=== PATIENT | male | born 1960 | race African-American/Black ===

== ENCOUNTER 2017-02-28 08:00 | Inpatient (IN) | payer OTHER, BC ==
[2017-02-23 08:25] VITALS: BMI 37.5
[2017-03-05] MEDS ORDERED: ePHEDrine SULFATE 50 MG/1 ML AMPULE ONE (07:23)
[2017-03-05] MEDS ORDERED: SUCCINYLCHOLINE CHLORIDE 200 MG/10 ML VIAL ONE (07:24)
[2017-03-05] MEDS ORDERED: PROPOFOL 20 ML ONE ×13 (07:25→11:55)
[2017-03-05] MEDS ORDERED: fentaNYL CITRATE 250 MCG/5 ML VIAL ONE ×2 (07:33→08:42)
[2017-03-05] MEDS ORDERED: MIDAZOLAM HCL 2 MG/2 ML SINGLE DOSE VIAL ONE ×5 (07:33→10:28)
[2017-03-05] MEDS ORDERED: ONDANSETRON 4 MG/2 ML VIAL IVPUSH PRN ×3 (07:42→13:06)
[2017-03-05] MEDS ORDERED: oxyCODONE HCL 5 MG TABLET PO PRN (07:42)
[2017-03-05] MEDS ORDERED: LACTATED RINGERS SOLUTION 1,000 ML IV SCH ×2 (07:45→13:15)
[2017-03-05] MEDS ORDERED: VANCOMYCIN 1,000 MG VIAL (RESTRICTED TO ID ONLY) ONE ×3 (07:46→18:05)
[2017-03-05] MEDS ORDERED: HEPARIN NA (PORCINE) 5,000 UNITS/ML 1ML VIAL ONE ×2 (07:46→09:20)
[2017-03-05] MEDS ORDERED: THROMBIN (BOVINE) 5,000 UNIT VIAL TP ONE ×2 (07:47→12:18)
[2017-03-05] MEDS ORDERED: GLYCOPYRROLATE 0.2 MG/1 ML VIAL ONE ×2 (08:47→12:03)
[2017-03-05] MEDS ORDERED: DEXAMETHASONE SOD PHOSPHATE 4 MG/1 ML VIAL ONE (09:11)
[2017-03-05] MEDS ORDERED: VANCOMYCIN 1 GRAM (PRE-DOCKED) 1,000 MG/250 ML BAG IVPB ONE (09:15)
[2017-03-05] MEDS ORDERED: CLINDAMYCIN PHOSPHATE 600 MG/4 ML VIAL ONE ×2 (09:18→18:03)
[2017-03-05] MEDS ORDERED: ROCURONIUM BROMIDE 50 MG/5 ML VIAL ONE (09:22)
[2017-03-05] MEDS ORDERED: CLINDAMYCIN 600 MG PREMIX BAG IVPB ONE (09:30)
[2017-03-05] MEDS ORDERED: METOPROLOL TARTRATE 5 MG/5 ML VIAL ONE ×2 (10:04→11:46)
[2017-03-05] MEDS ORDERED: SODIUM CHLORIDE 0.9% P/F 10 ML VIAL IJ ONE (10:08)
[2017-03-05] MEDS ORDERED: hydrALAZINE HCL 20 MG/ML VIAL ONE (10:08)
[2017-03-05] MEDS ORDERED: ONDANSETRON 4 MG/2 ML VIAL ONE (11:07)
[2017-03-05] MEDS ORDERED: LIDOCAINE HCL/PF 2% SDV 5ML VIAL ONE (11:46)
[2017-03-05] MEDS ORDERED: HYDROmorphone *PCA* 10MG/50ML DISP.SYRIN PCA SCH (12:00)
[2017-03-05] MEDS ORDERED: NEOSTIGMINE METHYLSULFATE 0.5 MG/ML - 10 ML MDV ONE (12:02)
--- NOTE | 2017-03-05 13:03 | OP ---
Operative Note - Note: Operative Date: 03/05/17 Pre-Operative Diagnosis: Stenosis post lumbar arthrodesis. Operation: 1. FIDELIA L3-L5. 2. Revision laminectomy L5. 3. Revision posterior decompression L2-S1. 4. Extension of fusion L1-L2. 5. Complex wound closure. Post-Operative Diagnosis: Same as Pre-op Surgeon: Bunny Sahni Tool Marker: Maycol Sahni Anesthesia: General Specimens Removed: Hardware. Osseous & fibrous scar tissue Estimated Blood Loss (mls): 650 Drains & Tubes with Location: 1 x 15F Prakash drain sub-fascial Blood Volume Replaced (mls): 250 (Cell saver) Fluid Volume Replaced (mls): 1,500 (Crystalloid) Operative Report Dictated: Yes
[2017-03-05] MEDS ORDERED: diazePAM CARPU-JECT 10 MG/2 ML DISP.SYRIN IVPUSH PRN (13:06)
[2017-03-05] MEDS ORDERED: KETOROLAC TROMETHAMINE 30 MG/1 ML VIAL IVPUSH PRN (13:06)
[2017-03-05] MEDS ORDERED: KETOROLAC TROMETHAMINE 30 MG/1 ML VIAL ONE (13:06)
--- NOTE | 2017-03-05 13:06 | PN ---
Progress Note (short form) - Note Progress Note: 56M s/p FIDELIA L3-L5, revision decompression L2-S1, extension of fusion ( uninstrumented L1-L2) POD #0. -Pain control. -Mechanical DVT PPx. only. -Incentive spirometry/aggressive pulmonary toilet. -PT/OR/Rehab, OOB. -WBAT B/L LE. -Monitor drain output. -Nuñez catheter care; d/c nuñez when ambulating. -24hrs sarath-op Abx. -NPO until flatus. -Admit to medical hospitalist team. -Admit to ICU. -Will follow.
[2017-03-05] MEDS ORDERED: ACETAMINOPHEN 1000 MG/100 ML VIAL (NON FORMULARY) IVPB SCH (13:15)
[2017-03-05] MEDS ORDERED: HYDROmorphone *PCA* 10MG/50ML DISP.SYRIN PCA ONE ×4 (13:20→18:30)
[2017-03-05] MEDS ORDERED: ACETAMINOPHEN 1000 MG/100 ML VIAL (NON FORMULARY) IVPB ONE (13:30)
--- NOTE | 2017-03-05 16:44 | HP ---
CHIEF COMPLAINT: "I have pain" PCP: unknown HISTORY OF PRESENT ILLNESS: This is a 56 year old male with PMHx of multiple back surgeries, TIA, HTN, who is POD #0 FIDELIA L3-L5, revision decompression L2-S1, extension of fusion L1-L2. The patient was evaluated in PACU with at bedside. He reports his pain is "through the roof". 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 Recent Travel: denies PAST MEDICAL HISTORY: as above PAST SURGICAL HISTORY: as above Social History: Smoking: denies Alcohol: once per month Drugs: denies Family History: Allergies Penicillins Allergy (Verified 03/05/17 07:17) "HIVES" HOME MEDICATIONS: Home Medications Medication Instructions Recorded Acetaminophen W/ Codeine #3 1 tab PO PRN PRN 02/23/17 [Tylenol # 3 -] Diazepam [Valium] 10 mg PO PRN PRN 02/23/17 Esomeprazole Magnesium [Nexium 20 mg PO DAILY 02/23/17 24Hr] L.acidoph,Paracasei, B.lactis 1 each PO DAILY 02/23/17 [Probiotic] Lisinopril 10 mg PO DAILY 02/23/17 Methocarbamol [Robaxin -] 500 mg PO BID 02/23/17 Oxycodone HCl [Oxycontin] 30 mg PO PRN PRN 02/23/17 Pregabalin [Lyrica] 100 mg PO BID 02/23/17 Sennosides/Docusate Sodium 1 each PO DAILY 02/23/17 [Senokot-S Tablet] REVIEW OF SYSTEMS CONSTITUTIONAL: Absent: fever, chills, diaphoresis, generalized weakness, malaise, loss of appetite, weight change HEENT: Absent: rhinorrhea, nasal congestion, throat pain, throat swelling, difficulty swallowing, visual changes CARDIOVASCULAR: Absent: chest pain, syncope, palpitations, irregular heart rate , lightheadedness, peripheral edema RESPIRATORY: Absent: cough, shortness of breath GASTROINTESTINAL:Absent: abdominal pain, abdominal distension, nausea, vomiting , diarrhea, constipation, melena, hematochezia GENITOURINARY: Absent: dysuria, frequency, urgency, hesitancy, hematuria, flank pain, genital pain MUSCULOSKELETAL: Chronic back pain, s/p surgery as above. 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 Absent: joint swelling, neck pain SKIN: Absent: rash, itching, pallor HEMATOLOGIC/IMMUNOLOGIC: Absent: easy bleeding ENDOCRINE:Absent: unexplained weight gain, unexplained weight loss, heat intolerance, cold intolerance NEUROLOGIC: Absent: headache, dizziness, seizure, bladder or bowel incontinence PSYCHIATRIC: Absent: anxiety, depression, suicidal or homicidal ideation, hallucinations. PHYSICAL EXAMINATION Vital Signs - 24 hr 03/05/17 03/05/17 03/05/17 07:23 13:04 13:20 Temperature 97.9 F 98.8 F Pulse Rate 88 82 74 Respiratory 16 16 16 Rate Blood Pressure 120/78 119/71 121/70 O2 Sat by Pulse 98 98 95 Oximetry (%) 03/05/17 03/05/17 03/05/17 13:50 13:56 14:05 Temperature Pulse Rate 76 84 82 Respiratory 16 16 16 Rate Blood Pressure 115/63 115/63 113/58 O2 Sat by Pulse 95 95 93 L Oximetry (%) 03/05/17 03/05/17 03/05/17 14:20 14:35 14:50 Temperature Pulse Rate 78 84 78 Respiratory 16 16 16 Rate Blood Pressure 119/63 115/63 100/71 O2 Sat by Pulse 93 L 93 L 93 L Oximetry (%) 03/05/17 03/05/17 03/05/17 15:05 15:20 15:35 Temperature Pulse Rate 85 77 74 Respiratory 16 16 16 Rate Blood Pressure 116/70 116/63 110/66 O2 Sat by Pulse 93 L 98 98 Oximetry (%) 03/05/17 03/05/17 03/05/17 15:50 16:05 16:20 Temperature Pulse Rate 80 84 84 Respiratory 16 16 16 Rate Blood Pressure 95/76 100/67 107/67 O2 Sat by Pulse 95 95 95 Oximetry (%) GENERAL: Awake, alert, and fully oriented, in no acute distress. HEAD: Normal with no signs of trauma. EYES: Pupils equal, round and reactive to light, extraocular movements intact EARS, NOSE, THROAT: Ears normal, nares patent, oropharynx clear without exudates LUNGS: Breath sounds equal, clear to auscultation bilaterally. No wheezes, and no crackles. No accessory muscle use. HEART: Regular rate and rhythm, normal S1 and S2 ABDOMEN: Absent bowel sounds. Soft, nontender, not distended, MUSCULOSKELETAL: Prakash drain in place with bloody drainage. Unable to visualize dressing on back as the patient was in pain UPPER EXTREMITIES: 2+ pulses, warm, well-perfused. No cyanosis. No clubbing. No peripheral edema. LOWER EXTREMITIES: 2+ pulses, warm, well-perfused. No calf tenderness. No peripheral edema. NEUROLOGICAL: Normal speech. Gait not observed PSYCHIATRIC: Cooperative. Good eye contact. Appropriate mood and affect. SKIN: Warm, dry, normal turgor, no rashes or lesions noted, normal capillary refill. Laboratory Results - last 24 hr 03/05/17 06:46 Blood Type A POSITIVE Antibody Screen Negative Assessment: This is a 56 year old male with PMHx of multiple back surgeries, TIA , HTN, who is POD #0 FIDELIA L3-L5, revision decompression L2-S1, extension of fusion L1-L2. Plan: 1) POD #0 FIDELIA L3-L5, revision laminectomy L5, revision posterior decompression L2-S1, extension of fusion L1-L2 - Pain management: Dilaudid CERTIFIED FORKLIFT OPERATOR - Toradol prn - Acetaminophen IVPB - Abx x24h (Clindamycin, Vancomycin x1) - Continue Valium - Monitor Prakash drain output - Oliver catheter until ambulating - Appreciate surgery note 2) HTN - Continue Lisinopril 3) F/E/N: - NPO until passing flatus - IV fluids 4) Prophylaxis: - SCDs only, NO chemical DVT prophylaxis per surgery - PT evaluation: WBAT bilateraly lower extremities - Incentive spirometer 5) Dispo: - Requires continued ICU care CODE STATUS: FULL CODE Visit type - Emergency Visit Emergency Visit: Yes ED Registration Date: 03/05/17 Care time: The patient presented to the Emergency Department on the above date and was hospitalized for further evaluation of their emergent condition. - New Patient This patient is new to me today: Yes Date on this admission: 03/05/17 - Critical Care Critical Care patient: Yes Total Critical Care Time (in minutes): 35 Critical Care Statement: The care of this patient involved high complexity decision making to prevent further life threatening deterioration of the patient 's condition and/or to evaluate & treat vital organ system(s) failure or risk of failure.
[2017-03-05] MEDS ORDERED: CLINDAMYCIN 900 MG PREMIX IVPB 900 MG/50 ML BAG IVPB SCH (18:00)
[2017-03-05] MEDS ORDERED: LORazepam 2 MG/ML SDV VIAL IVPUSH PRN (18:03)
[2017-03-05] MEDS ORDERED: CLINDAMYCIN PHOSPHATE 300 MG/2 ML VIAL ONE (18:03)
[2017-03-05] MEDS ORDERED: CLINDAMYCIN PHOSPHATE 900 MG/6 ML VIAL IVPB ONE (18:17)
--- NOTE | 2017-03-05 20:41 | CONSULT ---
Consult - text type - Consultation Consultation Note: [facility] CC: back pain HPI: 56 year old male with PMHx of multiple back surgeries, TIA, HTN, now POD # 0 s/p scheduled FIDELIA L3-L5, revision decompression L2-S1, extension of fusion L1-L2. with uneventful operative course. Tx to ICU for bed access(been in PACU since 1 pm) and overnight observation. [facility]: HTN SPinal stenosis PSHX -7 back surgeries Smoking History Smoking history Never smoked Alcohol/Substance Use Hx Alcohol Use Yes: SOCIALLY Active Medications Acetaminophen (Ofirmev Injection -) 1,000 mg IVPB Q8H [facility] Stop: 03/06/17 05:16 Chlorhexidine Gluconate (Hibiclens For Decolonization -) 1 applic TP HS [facility] Diphenhydramine HCl (Benadryl Injection -) 12.5 mg IVPUSH ONCE PRN PRN Reason: FOR ITCHING Fentanyl (Sublimaze Injection -) 50 mcg IVPUSH [id number] PRN PRN Reason: PAIN Hydromorphone HCl (Dilaudid Network Architect Manager -) 10 mg BRUSH MACHINE SETTER BRUSH MACHINE SETTER SILVIO PRN Reason: Protocol Stop: 03/12/17 07:44 Lactated Ringer's (Lactated Ringers Solution) 1,000 mls @ 125 mls/hr IV ASDIR SILVIO Vancomycin HCl 1,000 mg/ (Dextrose) 250 mls @ 500 mls/hr IVPB ONCE ONE PRN Reason: Protocol Stop: 03/05/17 21:29 Clindamycin Phosphate (Cleocin 900 Mg Premix Ivpb -) 900 mg in 50 mls @ 100 mls /hr IVPB Q8H-IV SILVIO Stop: 03/06/17 02:29 Ketorolac Tromethamine (Toradol Injection -) 30 mg IVPUSH Q6H PRN PRN Reason: PAIN Stop: 03/10/17 13:05 Lisinopril (Prinivil) 10 mg PO DAILY [facility] Lorazepam (Ativan Injection -) 1 mg IVPUSH Q6H PRN PRN Reason: PAIN Mupirocin (Bactroban Ointment (For Decolonization) -) 1 applic NS BID [facility] Stop: 03/10/17 21:59 Ondansetron HCl (Zofran Injection) 4 mg IVPUSH Q6H PRN PRN Reason: NAUSEA AND/OR VOMITING Oxycodone HCl (Roxicodone -) 10 mg PO Q4H PRN PRN Reason: SEVERE PAIN Vital Signs Temp 98.5 F 03/05/17 18:35 Pulse 80 03/05/17 19:10 Resp 16 03/05/17 19:10 BP 95/50 03/05/17 19:10 Pulse Ox 96 03/05/17 19:10 Intake & Output 03/04/17 03/05/17 03/05/17 23:59 11:59 23:59 Intake Total 1400 850 Output Total 1350 Balance 1400 -500 Intake: IV 1400 600 Blood Product 250 Output: Drainage 175 Urine 575 Estimated Blood Loss 600 ROS: 10pt review unremarkable save back pain GENERAL: Awake, alert, and fully oriented, in no acute distress. HEAD: Normal with no signs of trauma. EYES: Pupils equal, round and reactive to light, EOMI LUNGS:Clear HEART: Regular rate and rhythm, normal S1 and S2 ABDOMEN: hypoactive BS. MUSCULOSKELETAL: Prakash drain in place with serous drainage. wound dressed EXT: 2+ pulse throughout NEUROLOGICAL: Normal speech. Gait not observed, Distal sensation and movement intact PSYCHIATRIC: Cooperative. Good eye contact. Appropriate mood and affect. SKIN: Warm, dry, normal turgor, cap refill < 2 A/P 56 year old male POD #0 FIDELIA L3-L5, revision decompression L2-S1, extension of fusion L1-L2 in ICU for observation - Pn control: Dilaudid BRUSH MACHINE SETTER, Toradol prn, Acetaminophen IVPB - Abx x24h (Clindamycin, Vancomycin x1), d/c - Continue Valium - Monitor Prakash drain output - d/c nuñez - restart home Lisinopril in am if stable - NPO until passing flatus - IV fluids - scd for prophy -no indication for GI prophy Dispo: to floor CODE STATUS: FULL CODE [place] ACNP
[2017-03-05] MEDS ORDERED: VANCOMYCIN 1,000 MG in DEXTROSE 5%-WATER - 250 ML IVPB ONE (21:00)
[2017-03-05] MEDS: HYDROmorphone *PCA* 10MG/50ML DISP.SYRIN PCA SCH (21:04)
[2017-03-05] MEDS: LACTATED RINGERS SOLUTION 1,000 ML IV SCH (21:09)
[2017-03-05] MEDS: ACETAMINOPHEN 1000 MG/100 ML VIAL (NON FORMULARY) IVPB SCH (21:24)
[2017-03-05] MEDS: oxyCODONE HCL 5 MG TABLET PO PRN (21:47)
[2017-03-05] MEDS: CHLORHEXIDINE GLUCONATE 4% CLEANSER FOR DECOLONIZATION TP SCH (22:26)
[2017-03-05] MEDS: MUPIROCIN 2% TOPICAL OINTMENT FOR DECOLONIZATION NS SCH (22:26)
[2017-03-05] MEDS ORDERED: LACTATED RINGERS SOLUTION 1000 ML INFUS.BAG IV ONE (23:09)
[2017-03-05] MEDS ORDERED: PT OWN MED DRAWER 7, Y5N ONE (23:21)
[2017-03-06] MEDS ORDERED: HYDROmorphone *PCA* 10MG/50ML DISP.SYRIN PCA ONE (00:13)
[2017-03-06] MEDS: HYDROmorphone *PCA* 10MG/50ML DISP.SYRIN PCA SCH ×2 (00:16→13:30)
[2017-03-06] MEDS: ONDANSETRON 4 MG/2 ML VIAL IVPUSH PRN ×2 (01:13→08:44)
[2017-03-06] MEDS: ELECTROLYTE-148 SOLN 1,000 ML IV SCH ×2 (02:00→23:53)
[2017-03-06] MEDS: CLINDAMYCIN 900 MG PREMIX IVPB 900 MG/50 ML BAG IVPB SCH ×2 (02:01→09:35)
[2017-03-06] MEDS: ACETAMINOPHEN 1000 MG/100 ML VIAL (NON FORMULARY) IVPB SCH (05:34)
--- NOTE | 2017-03-06 07:08 | OP ---
DATE OF OPERATION: 03/05/2017 SURGEON: Bunny Sahni MD FRONT OFFICE ATTENDANT: Maycol Sahni MD PREOPERATIVE DIAGNOSIS: Recurrent spinal stenosis, L4, L5, S1 with neural foraminal stenosis and associated progressive radiculopathy, previous spinal fusion and adjacent level kyphosis. POSTOPERATIVE DIAGNOSIS: Recurrent spinal stenosis, L4, L5, S1 with neural foraminal stenosis and associated progressive radiculopathy, previous spinal fusion and adjacent level kyphosis. OPERATION PERFORMED: 1. Removal of hardware, L3, L4, and L5. 2. Inspection of fusion mass. 3. Revision laminectomy, L4, L5, and S1. 4. Posterolateral arthrodesis, L1, L2. ANESTHESIA: General. ANTIBIOTICS GIVEN: Kefzol 2 g, vancomycin 1 g preoperative; vancomycin 1 g given at the time of closure powder subfascially and powder superficially placed. BLOOD LOSS: 650. CELL SAVER BLOOD GAVE BACK: 300 mL INDICATIONS: Patient developed progressive radiculopathic pain, predominantly on the right, less on the left, with associated hardware bursitis symptomatology which has been evaluated with pain management injections which helped his pain significantly when the Marcaine was put onto the hardware, and for that reason, indications for this procedure were: Revision laminectomy all L4, L5, and S1 and associated removal of hardware at L3, L4, and L5, and extension of the fusion with biological extension, namely bone graft and stem cells to L1-2 and L2-3. OPERATION DETAILS: Patient was correctly identified, brought in the operating room, placed prone on a regular spinal frame. That is, gel rolls that were appropriately fixed to hold his configuration and conformity. The skin was prepped with Betadine scrub solution, wiped off with alcohol, DuraPrep applied. Alcohol was utilized to wipe off all the DuraPrep, and the Ioban skin drape was normally adherent. Midline incision utilized. That is, the old wound was exposed, extending approximately 1-1/2 inches proximal. Dissection was taken to the tip of the spinous process proximally, and then, using this as the landmark for further depth of dissection towards the dura, the of the incision into the muscle to lift the muscle laterally was performed accordingly. Lateral fluoroscopic x-rays facilitated levels of dissection. The hardware was dissected out using a Bovie. The hardware revealed no complications. Using the appropriate hardware removal equipment, all screws and hardware were removed. No complications. The fusion mass was inspected, found to be completely solid. What was clearly apparent was the reformation of bone of the posterior lamina site from the previous laminectomy, and this was extensively noted from L4-5 right down to S1. Meticulously, this was dissected using large curettes to free the adherent dura to the vertebral canal. This was stripped away readily in most parts. There was one area of proximalization of this which revealed the presence of reactive bone noted by the spicules of trabecular bone into the soft tissue bed and around it. This was decompressed adequately as well. All neural elements were completely freed. The foramina were palpated with a ball-tipped feeler. All nerves were identified, freed, and seen to be exiting out of the foramina without any occlusion at all. This included L4, L5, and S1, both left- and right-hand side. Once this had been performed, the area above L1-2 was dissected posteriorly, posterolaterally, and at that point, 120 mL of bone marrow was aspirated from the left posterior ilium, spun down for the CD34 cells, mixed with autologous bone that was all elements had removed from him, resulting in a complete rich, healthy autologous stem cell composite placed into the intertransverse plane. The wounds were thoroughly lavaged. CLOSURE: Fascia muscle 1 Vicryl, fascia 1 Vicryl, subcutaneous 1 and 2-0 Vicryl, skin susy. DRAINAGE: A large 1/4-inch drain subfascially. The appropriate closure was that of a classical complex wound closure of 30 cm. MD DANIA Garcia/[id number]
[2017-03-06 08:21] LABS: ANION GAP 9 (8-16); BLOOD UREA NITROGEN 31 mg/dL (7-18); CHLORIDE 104 mmol/L (98-107); CO2 24 mmol/L (21-32); CREATININE 1.8 mg/dL (0.7-1.3); GLUCOSE,RANDOM 95 mg/dL (74-106); POTASSIUM 5.4 mmol/L (3.5-5.1); SODIUM 137 mmol/L (136-145)
[2017-03-06 08:25] LABS: HEMATOCRIT 26.1 % (35.4-49); HEMOGLOBIN 8.7 GM/dL (11.7-16.9); MCHC 33.2 g/dl (32.0-35.9); MEAN CELL VOLUME 84.2 fl (80-96); MEAN PLT VOLUME 8.7 fl (7.5-11.1); PLATELET COUNT 149 K/MM3 (134-434); RDW 14.6 % (11.9-15.9)
[2017-03-06] MEDS: LORazepam 2 MG/ML SDV VIAL IVPUSH PRN (08:45)
[2017-03-06] MEDS ORDERED: HYDROmorphone *PCA* 10MG/50ML DISP.SYRIN PCA SCH (08:57)
[2017-03-06] MEDS: KETOROLAC TROMETHAMINE 30 MG/1 ML VIAL IVPUSH PRN ×3 (09:28→23:54)
--- NOTE | 2017-03-06 09:47 | PN ---
Progress Note (short form) - Note Progress Note: Post op day#1.S/P L3-5 revesion laminectomy with L1-2 fusion and instrumentation under Ga uneventful.P69,BP102/62 and Spo2 100% on O2 4L NC.Patient stable on Dilaudid STRAPPER c/o pain score of 6-7/10.Will increase STRAPPER dose to 0.4mg and also add Neurontin.Will f/u.
--- NOTE | 2017-03-06 09:49 | PN ---
Physical Exam: SUBJECTIVE: Patient seen and examined. C/o of back pain, seems to have been using the PAN RECLAIM PROCESSOR sparingly. Requesting food OBJECTIVE: Vital Signs Period Temp Pulse Resp BP Sys/Winkler Pulse Ox Last 24 Hr 97.7 F-98.8 F 57-85 8-18 72-121/40-79 93-99 GENERAL: The patient is awake, alert, and fully oriented, in mild painful distress. HEAD: Normal with no signs of trauma. EYES: PERRL, extraocular movements intact, sclera anicteric, conjunctiva clear. ENT: Nasal cannular-2L, sating well, oropharynx clear without exudates, moist mucous membranes. NECK: supple. LUNGS: Bilateral vesicular breath sounds R.L HEART: Regular rate and rhythm, S1, S2 ABDOMEN: Soft, nontender, obese, bowel sounds+ EXTREMITIES: 2+ pulses, warm, well-perfused. Bilat SCDs in place NEUROLOGICAL: Cranial nerves II through XII grossly intact. Normal speech, gait not observed. PSYCH: Normal mood, normal affect. SKIN: Warm, dry, Laboratory Results - last 24 hr 03/05/17 03/06/17 03/06/17 17:30 07:20 07:20 WBC 21.0 H RBC 3.10 L Hgb 8.7 L Hct 26.1 L MCV 84.2 MCH 28.0 MCHC 33.2 RDW 14.6 Plt Count 149 MPV 8.7 Sodium 137 Potassium 5.4 H Chloride 104 Carbon Dioxide 24 Anion Gap 9 BUN 31 H Creatinine 1.8 H Random Glucose 95 Calcium 8.0 L Blood Type A POSITIVE Active Medications Generic Name Dose Route Start Last Admin Trade Name Arabella PRN Reason Stop Dose Admin Chlorhexidine Gluconate 1 applic 03/05/17 22:00 03/05/17 22:26 Hibiclens For Decolonization - TP 1 applic HS SILVIO Administration Diphenhydramine HCl 12.5 mg 03/05/17 20:58 Benadryl Injection - IVPUSH ONCE PRN FOR ITCHING Fentanyl 50 mcg 03/05/17 20:58 Sublimaze Injection - IVPUSH [id number] PRN PAIN Gabapentin 300 mg 03/06/17 10:00 Neurontin - PO BID SILVIO Hydromorphone HCl 10 mg 03/06/17 08:57 Dilaudid Water Plant Operator - PAN RECLAIM PROCESSOR 03/12/17 07:44 PAN RECLAIM PROCESSOR SILVIO Protocol Clindamycin Phosphate 900 mg in 50 mls @ 100 mls/hr 03/06/17 02:00 03/06/17 09:35 Cleocin 900 Mg Premix Ivpb - IVPB 03/06/17 10:29 100 mls/hr Q8H-IV SILVIO Administration Lactated Ringer's 1,000 mls @ 125 mls/hr 03/05/17 20:58 03/05/17 21:09 Lactated Ringers Solution IV 125 mls/hr ASDIR SILVIO Administration Parenteral Electrolytes 1,000 mls @ 999 mls/hr 03/05/17 23:30 03/06/17 02:00 Plasma-Lyte 148 - IV 03/07/17 00:31 Not Given ASDIR SILVIO Ketorolac Tromethamine 30 mg 03/05/17 20:58 03/06/17 09:28 Toradol Injection - IVPUSH 03/10/17 13:05 30 mg Q6H PRN Administration PAIN Lisinopril 10 mg 03/06/17 10:00 Prinivil PO DAILY [facility] Lorazepam 1 mg 03/05/17 20:58 03/06/17 08:45 Ativan Injection - IVPUSH 1 mg Q6H PRN Administration PAIN Mupirocin 1 applic 03/05/17 22:00 03/05/17 22:26 Bactroban Ointment (For Decolonization) - NS 03/10/17 21:59 1 applic BID SILVIO Administration Ondansetron HCl 4 mg 03/05/17 20:58 03/06/17 08:44 Zofran Injection IVPUSH 4 mg Q6H PRN Administration NAUSEA AND/OR VOMITING Oxycodone HCl 10 mg 03/05/17 20:58 03/05/17 21:47 Roxicodone - PO 10 mg Q4H PRN Administration SEVERE PAIN ASSESSMENT/PLAN: 56 yo M with PMHx of 6 previous back surgeries, TIA, HTN, who is POD #0 FIDELIA L3- L5, revision decompression L2-S1, extension of fusion L1-L2. Neuro/Spinal/Musculoskeletal/ID: Previous TIA POD1 laminectomy pain control-increase continuous dose Dilaudid PAN RECLAIM PROCESSOR from 0.1 to 0.2 Toradol 30mg Iv push Q6H PRN Ativan 1mg iv push Q6H PRN Zofran 4mg ivpush Q6H PRN incentive spirometry Clindamycin 900mg ivpush Q8H Gabapentin 300mg PO bid CBC Out of Bed as able Renal/Fluid: GABRIEL r/o CKD Nuñez in place Plasmolyte @125/min Is and Os D/c nuñez after D/W surgeon BMP Cardio: HTN Lisinopril 10mg PO HS GI: Clear feeds started Advance per surgery Prophylaxis: Bilat SCDs for now Heparin SQ after clearing with surgical team Dispo: Med-Surg per critical care follow up with surgery Visit type - Emergency Visit Emergency Visit: No - New Patient This patient is new to me today: Yes Date on this admission: 03/06/17 - Critical Care Critical Care patient: Yes Total Critical Care Time (in minutes): 35 Critical Care Statement: The care of this patient involved high complexity decision making to prevent further life threatening deterioration of the patient 's condition and/or to evaluate & treat vital organ system(s) failure or risk of failure.
[2017-03-06] MEDS ORDERED: LISINOPRIL 10 MG TABLET (FP) PO SCH (10:00)
[2017-03-06] MEDS: MUPIROCIN 2% TOPICAL OINTMENT FOR DECOLONIZATION NS SCH ×2 (11:00→21:14)
[2017-03-06] MEDS: GABAPENTIN 300 MG CAPSULE (FP) PO SCH ×2 (11:45→21:15)
[2017-03-06] MEDS: LISINOPRIL 10 MG TABLET (FP) PO SCH (12:31)
[2017-03-06] MEDS: oxyCODONE HCL 5 MG TABLET PO PRN ×3 (13:17→23:08)
--- NOTE | 2017-03-06 13:59 | PN ---
Teaching Attending Note Name of Resident: Vivian Beard ATTENDING PHYSICIAN STATEMENT I saw and evaluated the patient. I reviewed the resident's note and discussed the case with the resident. I agree with the resident's findings and plan as documented. SUBJECTIVE: Pt seen and examined in the ICU. 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 Denies shortness of breath or chest pain. No fevers or chills. OBJECTIVE: Last Vital Signs Temp Pulse Resp BP Pulse Ox 97.7 F 75 10 L 102/51 98 03/06/17 06:00 03/06/17 09:58 03/06/17 09:58 03/06/17 09:58 03/06/17 09:00 Intake & Output 03/03/17 03/04/17 03/05/17 03/06/17 23:59 23:59 23:59 23:59 Intake Total 2375 3990 Output Total 1390 500 Balance 985 3490 Weight 108 kg Gen: NAD at rest Heart: RRR Lung: decreased breath sounds at the bases Abd: soft, nontender Ext: no edema Back: drain with serosanguinous drainage CBC, BMP 03/06/17 07:20 03/06/17 07:20 Active Medications Chlorhexidine Gluconate (Hibiclens For Decolonization -) [address] [facility] Last Admin: 03/05/17 22:26 Dose: 1 applic Diphenhydramine HCl (Benadryl Injection -) 12.5 mg IVPUSH ONCE PRN PRN Reason: FOR ITCHING Fentanyl (Sublimaze Injection -) 50 mcg IVPUSH [id number] PRN PRN Reason: PAIN Gabapentin (Neurontin -) [address] [facility] Last Admin: 03/06/17 11:45 Dose: 300 mg Hydromorphone HCl (Dilaudid Psychiatric Rn -) 10 mg RECYCLING OPERATIONS MANAGER RECYCLING OPERATIONS MANAGER SILVIO PRN Reason: Protocol Stop: 03/12/17 07:44 Last Admin: 03/06/17 09:58 Dose: 10 mg Lactated Ringer's (Lactated Ringers Solution) 1,000 mls @ 125 mls/hr IV ASDIR [facility] Last Admin: 03/05/17 21:09 Dose: 125 mls/hr Parenteral Electrolytes (Plasma-Lyte 148 -) 1,000 mls @ 999 mls/hr IV ASDIR [facility] Stop: 03/07/17 00:31 Last Admin: 03/06/17 02:00 Dose: Not Given Ketorolac Tromethamine (Toradol Injection -) 30 mg IVPUSH Q6H PRN PRN Reason: PAIN Stop: 03/10/17 13:05 Last Admin: 03/06/17 13:18 Dose: 30 mg Lisinopril (Prinivil) [address] [facility] Last Admin: 03/06/17 12:31 Dose: Not Given Lorazepam (Ativan Injection -) 1 mg IVPUSH Q6H PRN PRN Reason: PAIN Last Admin: 03/06/17 08:45 Dose: 1 mg Mupirocin (Bactroban Ointment (For Decolonization) -) [address] [facility] Stop: 03/10/17 21:59 Last Admin: 03/06/17 11:00 Dose: 1 applic Ondansetron HCl (Zofran Injection) 4 mg IVPUSH Q6H PRN PRN Reason: NAUSEA AND/OR VOMITING Last Admin: 03/06/17 08:44 Dose: 4 mg Oxycodone HCl (Roxicodone -) 10 mg PO Q4H PRN PRN Reason: SEVERE PAIN Last Admin: 03/06/17 13:17 Dose: 10 mg ASSESSMENT AND PLAN: s/p Removal of Hardware/Revision Decompression L2-S1/Extension of Fusion L1-L2 Renal Failure - r/o CKD HTN - pain control, increase continuous dose RECYCLING OPERATIONS MANAGER - incentive spirometry - IVF - monitor urine output, creatinine - d/c nuñez, start DVT prophylaxis, OOB to chair, transfer to floor per surgery
--- NOTE | 2017-03-06 15:04 | PN ---
Progress Note (short form) - Note Progress Note: Subjective: The patient was seen and examined at the bedside, he states he is still having pain but it is more under control since his medical lab technician was adjusted. Patient reports passing gas this AM, diet advanced Current Medications Generic Name Dose Route Start Last Admin Trade Name Freq PRN Reason Stop Dose Admin Chlorhexidine Gluconate 1 applic 03/05/17 22:00 03/05/17 22:26 Hibiclens For Decolonization - TP 1 applic HS SILVIO Administration Diphenhydramine HCl 12.5 mg 03/05/17 20:58 Benadryl Injection - IVPUSH ONCE PRN FOR ITCHING Fentanyl 50 mcg 03/05/17 20:58 Sublimaze Injection - IVPUSH [id number] PRN PAIN Gabapentin 300 mg 03/06/17 10:00 03/06/17 11:45 Neurontin - PO 300 mg BID SILVIO Administration Hydromorphone HCl 10 mg 03/06/17 14:56 Dilaudid Unbundler - EVENT SALES REPRESENTATIVE 03/12/17 07:44 EVENT SALES REPRESENTATIVE SILVIO Protocol Lactated Ringer's 1,000 mls @ 125 mls/hr 03/05/17 20:58 03/05/17 21:09 Lactated Ringers Solution IV 125 mls/hr ASDIR SILVIO Administration Parenteral Electrolytes 1,000 mls @ 999 mls/hr 03/05/17 23:30 03/06/17 02:00 Plasma-Lyte 148 - IV 03/07/17 00:31 Not Given ASDIR SILVIO Ketorolac Tromethamine 30 mg 03/05/17 20:58 03/06/17 13:18 Toradol Injection - IVPUSH 03/10/17 13:05 30 mg Q6H PRN Administration PAIN Lisinopril 10 mg 03/06/17 10:00 03/06/17 12:31 Prinivil PO Not Given DAILY SILVIO Lorazepam 1 mg 03/05/17 20:58 03/06/17 08:45 Ativan Injection - IVPUSH 1 mg Q6H PRN Administration PAIN Mupirocin 1 applic 03/05/17 22:00 03/06/17 11:00 Bactroban Ointment (For Decolonization) - NS 03/10/17 21:59 1 applic BID SILVIO Administration Ondansetron HCl 4 mg 03/05/17 20:58 03/06/17 08:44 Zofran Injection IVPUSH 4 mg Q6H PRN Administration NAUSEA AND/OR VOMITING Oxycodone HCl 10 mg 03/05/17 20:58 03/06/17 13:17 Roxicodone - PO 10 mg Q4H PRN Administration SEVERE PAIN Objective: Vital Signs Period Temp Pulse Resp BP Sys/Winkler Pulse Ox Last 24 Hr 97.7 F-98.6 F 57-84 8-18 72-115/40-79 95-99 Physical Exam: General: NAD, A&Ox3 Lungs: CTA bilaterally Heart: RRR, S1S2 Abd: Soft, non-tender. Normoactive bowel sounds Ext: Moving all extremities. Warm, well-perfused. 2+ DP/PT bilaterally Neuro: CN 2-12 intact CBCD WBC 21.0 K/mm3 (4.0-10.0) H 03/06/17 07:20 RBC 3.10 M/mm3 (4.00-5.60) L 03/06/17 07:20 Hgb 8.7 GM/dL (11.7-16.9) L 03/06/17 07:20 Hct 26.1 % (35.4-49) L 03/06/17 07:20 MCV 84.2 fl (80-96) 03/06/17 07:20 MCHC 33.2 g/dl (32.0-35.9) 03/06/17 07:20 RDW 14.6 % (11.9-15.9) 03/06/17 07:20 Plt Count 149 K/MM3 (134-434) 03/06/17 07:20 MPV 8.7 fl (7.5-11.1) 03/06/17 07:20 CMP Sodium 137 mmol/L (136-145) 03/06/17 07:20 Potassium 5.4 mmol/L (3.5-5.1) H 03/06/17 07:20 Chloride 104 mmol/L (98-107) 03/06/17 07:20 Carbon Dioxide 24 mmol/L (21-32) 03/06/17 07:20 Anion Gap 9 (8-16) 03/06/17 07:20 BUN 31 mg/dL (7-18) H 03/06/17 07:20 Creatinine 1.8 mg/dL (0.7-1.3) H 03/06/17 07:20 Random Glucose 95 mg/dL (74-106) 03/06/17 07:20 Calcium 8.0 mg/dL (8.5-10.1) L 03/06/17 07:20 Microbiology 03/05/17 11:20 Tissue-Other Gram Stain - Final 03/05/17 11:20 Tissue-Other Tissue Culture - Preliminary NO AEROBIC GROWTH, 24 HRS Assessment: This is a 56 year old male with PMHx of multiple back surgeries, TIA , HTN, who is POD #0 FIDELIA L3-L5, revision decompression L2-S1, extension of fusion L1-L2. Plan: 1) POD #1 FIDELIA L3-L5, revision laminectomy L5, revision posterior decompression L2-S1, extension of fusion L1-L2 - Pain management: Dilaudid EVENT SALES REPRESENTATIVE, increased demand and added - Toradol prn - Acetaminophen IVPB - Continue Valium - Monitor Prakash drain output - Oliver catheter discontinued - Appreciate surgery note 2) HTN - Continue Lisinopril 3) F/E/N: - Advance diet per surgery - IV fluids 4) Prophylaxis: - SCDs only, NO chemical DVT prophylaxis per surgery - PT evaluation: WBAT bilateraly lower extremities - Incentive spirometer 5) Dispo: - Requires continued inpatient care CODE STATUS: FULL CODE Visit type - Emergency Visit Emergency Visit: Yes ED Registration Date: 03/05/17 Care time: The patient presented to the Emergency Department on the above date and was hospitalized for further evaluation of their emergent condition. - New Patient This patient is new to me today: No - Critical Care Critical Care patient: No
--- NOTE | 2017-03-06 18:46 | PATH ---
Surgical Pathology Report Patient Name: RONNY HARRIS [facility]. Rec. #: [id number] /Age/Gender: 1960 (Age: 56) / M Account: [id number] Location: ICU PROFESSOR OF PUBLIC ADMINISTRATION Taken: 03/05/2017 Received: 03/06/2017 Reported: 03/06/2017 Physicians: Bunny Sahni M.D. Specimen(s) Received HARDWARE L3-L5 Clinical History Spinal stenosis Final Diagnosis ORTHOPEDIC HARDWARE, L3-5, REMOVAL: METALLIC SCREWS AND RODS CONSISTENT WITH ORTHOPEDIC HARDWARE (GROSS ONLY). Electronically Signed Maurice Stack M.D. Gross Description Received fresh labeled "L3-5 hardware," are 6 metallic screws averaging 5.4 cm in length as well as 6 additional screws averaging 0.4 cm in length. Also received within the same container are 2 bent metallic rods averaging 6.5 cm in length as well as a 6.4 cm in length metallic foreign device. No soft tissue is present. No sections are submitted, gross only. /03/06/2017 saudi03/06/2017
[2017-03-06] MEDS: DOCUSATE SODIUM 100 MG CAPSULE (FP) PO SCH (21:15)
[2017-03-06] MEDS: LACTATED RINGERS SOLUTION 1,000 ML IV SCH (21:15)
[2017-03-06] MEDS: CHLORHEXIDINE GLUCONATE 4% CLEANSER FOR DECOLONIZATION TP SCH (21:15)
[2017-03-06] MEDS ORDERED: BENZOCAINE/MENTH/CETYLPYRD CL 1 EACH LOZENGE MM PRN (21:23)
[2017-03-07] MEDS: oxyCODONE HCL 5 MG TABLET PO PRN ×2 (03:05→08:29)
[2017-03-07] MEDS ORDERED: HYDROmorphone *PCA* 10MG/50ML DISP.SYRIN PCA ONE (04:23)
[2017-03-07] MEDS: HYDROmorphone *PCA* 10MG/50ML DISP.SYRIN PCA SCH ×2 (04:27→21:05)
[2017-03-07] MEDS ORDERED: PT OWN MED DRAWER 7, Y5N ONE ×3 (05:47→06:35)
[2017-03-07] MEDS: DOCUSATE SODIUM 100 MG CAPSULE (FP) PO SCH ×3 (05:51→21:10)
[2017-03-07] MEDS: KETOROLAC TROMETHAMINE 30 MG/1 ML VIAL IVPUSH PRN ×3 (06:04→14:29)
[2017-03-07 06:52] LABS: BASO % 0.2 % (0-2.0); EOS % 1.5 % (0-4.5); HEMATOCRIT 24.7 % (35.4-49); HEMOGLOBIN 8.3 GM/dL (11.7-16.9); LYMPH % 15.7 % (8-40); MCH 28.5 pg (25.7-33.7); MCHC 33.7 g/dl (32.0-35.9); MEAN CELL VOLUME 84.8 fl (80-96); MEAN PLT VOLUME 8.8 fl (7.5-11.1); NEUT % 71.6 % (42.8-82.8); PLATELET COUNT 146 K/MM3 (134-434); RBC 2.91 M/mm3 (4.00-5.60); RDW 14.8 % (11.9-15.9); WHITE BLOOD COUNT 11.5 K/mm3 (4.0-10.0)
[2017-03-07 07:25] LABS: ALBUMIN 2.6 g/dl (3.4-5.0); ANION GAP 5 (8-16); BLOOD UREA NITROGEN 25 mg/dL (7-18); CALCIUM 7.5 mg/dL (8.5-10.1); CHLORIDE 107 mmol/L (98-107); CO2 27 mmol/L (21-32); CREATININE 1.3 mg/dL (0.7-1.3); GLUCOSE,RANDOM 101 mg/dL (74-106); MAGNESIUM 2.3 mg/dL (1.8-2.4); PHOSPHOROUS 3.2 mg/dL (2.5-4.9); POTASSIUM 4.2 mmol/L (3.5-5.1); SGOT/AST 14 U/L (15-37); SGPT/ALT 21 U/L (12-78); SODIUM 139 mmol/L (136-145)
[2017-03-07 07:27] LABS: ALK PHOS 59 U/L (45-117); BILIRUBIN,TOTAL 0.5 mg/dL (0.2-1.0); TOT PROT 5.4 g/dl (6.4-8.2)
--- NOTE | 2017-03-07 08:14 | PN ---
Progress Note (short form) - Note Progress Note: Post op day2.P76,Bp92/46 and Spo2 98% on O2 2l NC.Patient stable and c/o pain score 5-6/10 on Dilaudid HAND II CUTTER,Neurntin and Oxycodone.Will adcd Ketorolac today and continue HAND II CUTTER.Will f/u.
[2017-03-07] MEDS: GABAPENTIN 300 MG CAPSULE (FP) PO SCH ×3 (08:31→21:09)
--- NOTE | 2017-03-07 09:41 | PN ---
Physical Exam: SUBJECTIVE: Patient seen and examined. Seen sitting up in bed having breakfast. Sat up with assistance at edge of bed, but yet to sit out of bed in chair. Still complaining about pain, but says it is slightly improved. Noted to desat when lying down or sleeping without nasal cannular. OBJECTIVE: Vital Signs Period Temp Pulse Resp BP Sys/Winkler Pulse Ox Last 24 Hr 97.8 F-98.9 F 66-79 8-14 88-110/43-76 98 GENERAL: The patient is awake, alert, and fully oriented, in mild painful distress. HEAD: Normal with no signs of trauma. EYES: PERRL, extraocular movements intact, sclera anicteric, conjunctiva clear. ENT: Nasal cannular-2L, sating well, oropharynx clear without exudates, moist mucous membranes. NECK: supple. LUNGS: Bilateral vesicular breath sounds R.L HEART: Regular rate and rhythm, S1, S2 ABDOMEN: Soft, nontender, obese, bowel sounds+ EXTREMITIES: 2+ pulses, warm, well-perfused. Bilat SCDs in place NEUROLOGICAL: Cranial nerves II through XII grossly intact. Normal speech, gait not observed. PSYCH: Normal mood, normal affect. SKIN: Warm, dry, TIMA: Midline back dressing in place, with drain place draining serosanguinous fluid Lines: Nuñez in place, drain in place, NC-2L, RUE line Laboratory Results - last 24 hr 03/07/17 03/07/17 06:25 06:25 WBC 11.5 H D RBC 2.91 L Hgb 8.3 L Hct 24.7 L MCV 84.8 MCH 28.5 MCHC 33.7 RDW 14.8 Plt Count 146 MPV 8.8 Neutrophils % 71.6 Lymphocytes % 15.7 Monocytes % 11.0 H Eosinophils % 1.5 Basophils % 0.2 Sodium 139 Potassium 4.2 D Chloride 107 Carbon Dioxide 27 Anion Gap 5 L BUN 25 H Creatinine 1.3 D Creat Clearance w eGFR 57.10 Random Glucose 101 Calcium 7.5 L Phosphorus 3.2 Magnesium 2.3 Total Bilirubin 0.5 AST 14 L ALT 21 Alkaline Phosphatase 59 Total Protein 5.4 L Albumin 2.6 L Active Medications Generic Name Dose Route Start Last Admin Trade Name Freq PRN Reason Stop Dose Admin Benzocaine/Menthol 1 each 03/06/17 21:23 Cepacol Lozenge - MM PRN PRN SORE THROAT Chlorhexidine Gluconate 1 applic 03/05/17 22:00 03/06/17 21:15 Hibiclens For Decolonization - TP 1 applic HS SILVIO Administration Diphenhydramine HCl 12.5 mg 03/05/17 20:58 Benadryl Injection - IVPUSH ONCE PRN FOR ITCHING Docusate Sodium 100 mg 03/06/17 22:00 03/07/17 05:51 Colace - PO 100 mg TID SILVIO Administration Fentanyl 50 mcg 03/05/17 20:58 Sublimaze Injection - IVPUSH [id number] PRN PAIN Gabapentin 300 mg 03/06/17 10:00 03/07/17 08:31 Neurontin - PO 300 mg BID SILVIO Administration Hydromorphone HCl 10 mg 03/06/17 14:56 03/07/17 04:27 Dilaudid Charter Driver - COMMUNICATIONS PROJECT MANAGER 03/12/17 07:44 10 mg COMMUNICATIONS PROJECT MANAGER SILVIO Administration Protocol Lactated Ringer's 1,000 mls @ 125 mls/hr 03/05/17 20:58 03/06/17 21:15 Lactated Ringers Solution IV 125 mls/hr ASDIR SILVIO Administration Ketorolac Tromethamine 30 mg 03/07/17 08:10 Toradol Injection - IVPUSH 03/12/17 08:09 Q6H PRN BACK PAIN Lisinopril 10 mg 03/06/17 10:00 03/06/17 12:31 Prinivil PO Not Given DAILY SILVIO Lorazepam 1 mg 03/05/17 20:58 03/06/17 08:45 Ativan Injection - IVPUSH 1 mg Q6H PRN Administration PAIN Mupirocin 1 applic 03/05/17 22:00 03/06/17 21:14 Bactroban Ointment (For Decolonization) - NS 03/10/17 21:59 1 applic BID SILVIO Administration Ondansetron HCl 4 mg 03/05/17 20:58 03/06/17 08:44 Zofran Injection IVPUSH 4 mg Q6H PRN Administration NAUSEA AND/OR VOMITING Oxycodone HCl 10 mg 03/05/17 20:58 03/07/17 08:29 Roxicodone - PO 10 mg Q4H PRN Administration SEVERE PAIN ASSESSMENT/PLAN: 56 yo M with PMHx of 6 previous back surgeries, TIA, HTN, who is POD #2 FIDELIA L3- L5, revision decompression L2-S1, extension of fusion L1-L2. Neuro/Spinal/Musculoskeletal/ID: Previous TIA POD2 laminectomy pain control-per anesthesia Toradol 30mg Iv push Q6H PRN Zofran 4mg ivpush Q6H PRN roxicodone 10mg Q4H incentive spirometry Clindamycin 900mg ivpush Q8H Gabapentin 300mg PO bid Colace 100mg PO tid CBC Out of Bed into chair PT Renal/Fluid: GABRIEL r/o CKD Nuñez in place IVFs stopped Is and Os D/c nuñez BMP Cardio: HTN Lisinopril 10mg PO HS GI: On full diet Prophylaxis: Bilat SCDs for now Heparin SQ after clearing with surgical team Dispo: Med-Surg per critical care follow up with surgery Visit type - Emergency Visit Emergency Visit: Yes ED Registration Date: 03/05/17 Care time: The patient presented to the Emergency Department on the above date and was hospitalized for further evaluation of their emergent condition. - New Patient This patient is new to me today: No - Critical Care Critical Care patient: Yes Total Critical Care Time (in minutes): 35 Critical Care Statement: The care of this patient involved high complexity decision making to prevent further life threatening deterioration of the patient 's condition and/or to evaluate & treat vital organ system(s) failure or risk of failure. - Discharge Referral Referred to [facility] Med P.C.: No
[2017-03-07] MEDS: LISINOPRIL 10 MG TABLET (FP) PO SCH (10:49)
[2017-03-07] MEDS: MUPIROCIN 2% TOPICAL OINTMENT FOR DECOLONIZATION NS SCH (11:07)
--- NOTE | 2017-03-07 11:16 | PN ---
Progress Note (short form) - Note Progress Note: Subjective: The patient was seen and examined at the bedside, he reports 10/10 pain Current Medications Generic Name Dose Route Start Last Admin Trade Name Freq PRN Reason Stop Dose Admin Benzocaine/Menthol 1 each 03/06/17 21:23 Cepacol Lozenge - MM PRN PRN SORE THROAT Chlorhexidine Gluconate 1 applic 03/05/17 22:00 03/06/17 21:15 Hibiclens For Decolonization - TP 1 applic HS SILVIO Administration Diphenhydramine HCl 12.5 mg 03/05/17 20:58 Benadryl Injection - IVPUSH ONCE PRN FOR ITCHING Docusate Sodium 100 mg 03/06/17 22:00 03/07/17 05:51 Colace - PO 100 mg TID SILVIO Administration Fentanyl 50 mcg 03/05/17 20:58 Sublimaze Injection - IVPUSH [id number] PRN PAIN Gabapentin 300 mg 03/06/17 10:00 03/07/17 10:49 Neurontin - PO Not Given BID SILVIO Hydromorphone HCl 10 mg 03/07/17 11:17 Dilaudid Pilot Can Router - WINK CUTTER OPERATOR 03/12/17 07:44 WINK CUTTER OPERATOR SILVIO Protocol Lactated Ringer's 1,000 mls @ 125 mls/hr 03/05/17 20:58 03/06/17 21:15 Lactated Ringers Solution IV 125 mls/hr ASDIR SILVIO Administration Ketorolac Tromethamine 30 mg 03/07/17 08:10 03/07/17 10:43 Toradol Injection - IVPUSH 03/12/17 08:09 30 mg Q6H PRN Administration BACK PAIN Lisinopril 10 mg 03/06/17 10:00 03/07/17 10:49 Prinivil PO Not Given DAILY SILVIO Lorazepam 1 mg 03/05/17 20:58 03/06/17 08:45 Ativan Injection - IVPUSH 1 mg Q6H PRN Administration PAIN Mupirocin 1 applic 03/05/17 22:00 03/07/17 11:07 Bactroban Ointment (For Decolonization) - NS 03/10/17 21:59 1 applic BID SILVIO Administration Ondansetron HCl 4 mg 03/05/17 20:58 03/06/17 08:44 Zofran Injection IVPUSH 4 mg Q6H PRN Administration NAUSEA AND/OR VOMITING Objective: Vital Signs Period Temp Pulse Resp BP Sys/Winkler Pulse Ox Last 24 Hr 98 F-98.9 F 66-79 8-14 88-110/43-76 98 Physical Exam: General: NAD, A&Ox3 Lungs: CTA bilaterally Heart: RRR, S1S2 Abd: Back dressing, c/d/i. Prakash drain in place. Soft, non-tender. Normoactive bowel sounds Ext: Moving all extremities. Warm, well-perfused. 2+ DP/PT bilaterally Neuro: CN 2-12 intact CBCD WBC 11.5 K/mm3 (4.0-10.0) H D 03/07/17 06:25 RBC 2.91 M/mm3 (4.00-5.60) L 03/07/17 06:25 Hgb 8.3 GM/dL (11.7-16.9) L 03/07/17 06:25 Hct 24.7 % (35.4-49) L 03/07/17 06:25 MCV 84.8 fl (80-96) 03/07/17 06:25 MCHC 33.7 g/dl (32.0-35.9) 03/07/17 06:25 RDW 14.8 % (11.9-15.9) 03/07/17 06:25 Plt Count 146 K/MM3 (134-434) 03/07/17 06:25 MPV 8.8 fl (7.5-11.1) 03/07/17 06:25 CMP Sodium 139 mmol/L (136-145) 03/07/17 06:25 Potassium 4.2 mmol/L (3.5-5.1) D 03/07/17 06:25 Chloride 107 mmol/L (98-107) 03/07/17 06:25 Carbon Dioxide 27 mmol/L (21-32) 03/07/17 06:25 Anion Gap 5 (8-16) L 03/07/17 06:25 BUN 25 mg/dL (7-18) H 03/07/17 06:25 Creatinine 1.3 mg/dL (0.7-1.3) D 03/07/17 06:25 Creat Clearance w eGFR 57.10 (>60) 03/07/17 06:25 Random Glucose 101 mg/dL (74-106) 03/07/17 06:25 Calcium 7.5 mg/dL (8.5-10.1) L 03/07/17 06:25 Total Bilirubin 0.5 mg/dL (0.2-1.0) 03/07/17 06:25 AST 14 U/L (15-37) L 03/07/17 06:25 ALT 21 U/L (12-78) 03/07/17 06:25 Alkaline Phosphatase 59 U/L (45-117) 03/07/17 06:25 Total Protein 5.4 g/dl (6.4-8.2) L 03/07/17 06:25 Albumin 2.6 g/dl (3.4-5.0) L 03/07/17 06:25 Microbiology 03/05/17 11:20 Tissue-Other Gram Stain - Final 03/05/17 11:20 Tissue-Other Tissue Culture - Preliminary NO AEROBIC GROWTH, 24 HRS 03/05/17 11:20 Tissue-Other Anaerobic Culture - Final NO ANAEROBES WERE ISOLATED Assessment: This is a 56 year old male with PMHx of multiple back surgeries, TIA , HTN, who is POD #0 FIDELIA L3-L5, revision decompression L2-S1, extension of fusion L1-L2. Plan: 1) POD #2 FIDELIA L3-L5, revision laminectomy L5, revision posterior decompression L2-S1, extension of fusion L1-L2 - Pain management: Dilaudid WINK CUTTER OPERATOR, patient reports 10/10 pain. Called anesthesia to adjust - Toradol prn - Acetaminophen IVPB - Continue Valium - Monitor Prakash drain output - Oliver catheter discontinue once ambulating - Appreciate surgery note 2) HTN - Continue Lisinopril 3) F/E/N: - Advance diet per surgery - IV fluids 4) Prophylaxis: - SCDs only, NO chemical DVT prophylaxis per surgery - PT evaluation: WBAT bilateraly lower extremities - Incentive spirometer 5) Dispo: - Requires continued inpatient care CODE STATUS: FULL CODE Visit type - Emergency Visit Emergency Visit: Yes ED Registration Date: 03/05/17 Care time: The patient presented to the Emergency Department on the above date and was hospitalized for further evaluation of their emergent condition. - New Patient This patient is new to me today: No - Critical Care Critical Care patient: No
[2017-03-07] MEDS ORDERED: HYDROmorphone *PCA* 10MG/50ML DISP.SYRIN PCA SCH (11:17)
--- NOTE | 2017-03-07 14:05 | PN ---
Teaching Attending Note Name of Resident: Vivian Beard ATTENDING PHYSICIAN STATEMENT I saw and evaluated the patient. I reviewed the resident's note and discussed the case with the resident. I agree with the resident's findings and plan as documented. SUBJECTIVE: Pt seen and examined in the ICU. Pain better controlled, more groggy today. No shortness of breath or chest pain. No fevers or chills. Tolerating PO. OBJECTIVE: Last Vital Signs Temp Pulse Resp BP Pulse Ox 98.3 F 73 8 L 99/48 98 03/07/17 06:00 03/07/17 08:27 03/07/17 09:00 03/07/17 08:27 03/06/17 20:20 Intake & Output 03/04/17 03/05/17 03/06/17 03/07/17 23:59 23:59 23:59 23:59 Intake Total 2375 5590 2184 Output Total 1390 1970 2150 Balance 985 3620 34 Weight 108 kg 111.839 kg Gen: groggy but appropriate Heart: RRR Lung: decreased breath sounds at the bases Abd: soft, nontender Ext: no edema Back: serosanguinous drainage CBC, BMP 03/07/17 06:25 03/07/17 06:25 Active Medications Benzocaine/Menthol (Cepacol Lozenge -) 1 each MM PRN PRN PRN Reason: SORE THROAT Chlorhexidine Gluconate (Hibiclens For Decolonization -) 1 applic TP HS [facility] Last Admin: 03/06/17 21:15 Dose: 1 applic Diphenhydramine HCl (Benadryl Injection -) 12.5 mg IVPUSH ONCE PRN PRN Reason: FOR ITCHING Docusate Sodium (Colace -) 100 mg PO TID [facility] Last Admin: 03/07/17 05:51 Dose: 100 mg Fentanyl (Sublimaze Injection -) 50 mcg IVPUSH [id number] PRN PRN Reason: PAIN Gabapentin (Neurontin -) 300 mg PO BID [facility] Last Admin: 03/07/17 10:49 Dose: Not Given Hydromorphone HCl (Dilaudid Software Validation Technician -) 10 mg MILL DRESSER MILL DRESSER [facility] PRN Reason: Protocol Stop: 03/12/17 07:44 Lactated Ringer's (Lactated Ringers Solution) 1,000 mls @ 125 mls/hr IV ASDIR [facility] Last Admin: 03/06/17 21:15 Dose: 125 mls/hr Ketorolac Tromethamine (Toradol Injection -) 30 mg IVPUSH Q6H PRN PRN Reason: BACK PAIN Stop: 03/12/17 08:09 Last Admin: 03/07/17 10:43 Dose: 30 mg Lisinopril (Prinivil) 10 mg PO DAILY [facility] Last Admin: 03/07/17 10:49 Dose: Not Given Lorazepam (Ativan Injection -) 1 mg IVPUSH Q6H PRN PRN Reason: PAIN Last Admin: 03/06/17 08:45 Dose: 1 mg Mupirocin (Bactroban Ointment (For Decolonization) -) 1 applic NS BID [facility] Stop: 03/10/17 21:59 Last Admin: 03/07/17 11:07 Dose: 1 applic Ondansetron HCl (Zofran Injection) 4 mg IVPUSH Q6H PRN PRN Reason: NAUSEA AND/OR VOMITING Last Admin: 03/06/17 08:44 Dose: 4 mg ASSESSMENT AND PLAN: s/p Removal of Hardware/Revision Decompression L2-S1/Extension of Fusion L1-L2 Acute Kidney Injury improving HTN - pain control - incentive spirometry - IVF - monitor urine output, creatinine - d/c nuñez, DVT prophylaxis, OOB to chair, transfer to floor per surgery
[2017-03-07] MEDS: LORazepam 2 MG/ML SDV VIAL IVPUSH PRN (17:21)
[2017-03-07] MEDS ORDERED: LACTATED RINGERS SOLUTION 1,000 ML IV SCH (19:07)
[2017-03-07] MEDS ORDERED: ONDANSETRON 4 MG/2 ML VIAL IVPUSH PRN (19:07)
[2017-03-07] MEDS ORDERED: BENZOCAINE/MENTH/CETYLPYRD CL 1 EACH LOZENGE MM PRN (19:07)
[2017-03-07] MEDS ORDERED: LORazepam 2 MG/ML SDV VIAL IVPUSH PRN (19:07)
--- NOTE | 2017-03-07 19:44 | PN ---
Progress Note (short form) - Note Progress Note: POD#2 In SICU Sat in chair C/O neuralgic R leg and foot pain L5 S1 dermatome Vitals all stable Abd Soft Passed flatus Neuro LE motors and sensory at baseline Wound dry Assess Pain in S1 and L5 dermatome PLAN PT Mobilize Pain Mx D/C to rehab tomorrow or [facility]
[2017-03-07] MEDS: ELECTROLYTE-148 SOLN 1,000 ML IV SCH (21:06)
[2017-03-07] MEDS ORDERED: GABAPENTIN 300 MG CAPSULE (FP) PO SCH (22:00)
[2017-03-07] MEDS ORDERED: MUPIROCIN 2% TOPICAL OINTMENT FOR DECOLONIZATION NS SCH (22:00)
[2017-03-08] MEDS: KETOROLAC TROMETHAMINE 30 MG/1 ML VIAL IVPUSH PRN ×2 (01:29→10:30)
[2017-03-08] MEDS: HYDROmorphone *PCA* 10MG/50ML DISP.SYRIN PCA SCH ×3 (03:58→19:49)
[2017-03-08] MEDS: DOCUSATE SODIUM 100 MG CAPSULE (FP) PO SCH ×3 (06:22→22:47)
[2017-03-08] MEDS: GABAPENTIN 300 MG CAPSULE (FP) PO SCH ×3 (06:22→22:47)
[2017-03-08 08:54] LABS: BASO % 0.4 % (0-2.0); EOS % 2.7 % (0-4.5); HEMATOCRIT 24.7 % (35.4-49); HEMOGLOBIN 8.2 GM/dL (11.7-16.9); LYMPH % 25.6 % (8-40); MCH 28.2 pg (25.7-33.7); MCHC 33.2 g/dl (32.0-35.9); MEAN CELL VOLUME 84.8 fl (80-96); MEAN PLT VOLUME 8.6 fl (7.5-11.1); MONO % 12.2 % (3.8-10.2); NEUT % 59.1 % (42.8-82.8); PLATELET COUNT 152 K/MM3 (134-434); RBC 2.91 M/mm3 (4.00-5.60); RDW 14.8 % (11.9-15.9); WHITE BLOOD COUNT 13.4 K/mm3 (4.0-10.0)
[2017-03-08] MEDS: LISINOPRIL 10 MG TABLET (FP) PO SCH (09:08)
[2017-03-08 09:13] LABS: CHLORIDE 106 mmol/L (98-107); POTASSIUM 4.5 mmol/L (3.5-5.1); SODIUM 140 mmol/L (136-145)
--- NOTE | 2017-03-08 09:21 | PN ---
Progress Note (short form) - Note Progress Note: Subjective: The patient was seen and examined at the bedside, he states he is feeling better today and his pain has improved slightly For PT today Once ambulating will remove nuñez catheter Current Medications Generic Name Dose Route Start Last Admin Trade Name Freq PRN Reason Stop Dose Admin Benzocaine/Menthol 1 each 03/07/17 19:07 Cepacol Lozenge - MM DAILY PRN SORE THROAT Diphenhydramine HCl 12.5 mg 03/07/17 19:17 Benadryl Injection - IVPUSH ONCE PRN FOR ITCHING Docusate Sodium 100 mg 03/07/17 22:00 03/08/17 06:22 Colace - PO 100 mg TID SILVIO Administration Gabapentin 300 mg 03/07/17 22:00 03/08/17 06:22 Neurontin - PO 300 mg TID SILVIO Administration Hydromorphone HCl 10 mg 03/07/17 19:07 03/08/17 03:58 Dilaudid Hybrid Corn Breeder - UNDER PRESSER 03/12/17 07:44 10 mg UNDER PRESSER SILVIO Administration Protocol Parenteral Electrolytes 1,000 mls @ 125 mls/hr 03/07/17 19:18 03/07/17 21:06 Plasma-Lyte 148 - IV Not Given ASDIR [facility] Ketorolac Tromethamine 30 mg 03/07/17 19:07 03/08/17 10:30 Toradol Injection - IVPUSH 03/12/17 08:09 30 mg Q6H PRN Administration BACK PAIN Lisinopril 10 mg 03/08/17 10:00 03/08/17 09:08 Prinivil PO Not Given DAILY [facility] Lorazepam 1 mg 03/07/17 19:07 Ativan Injection - IVPUSH Q6H PRN PAIN Ondansetron HCl 4 mg 03/07/17 19:07 Zofran Injection IVPUSH Q6H PRN NAUSEA AND/OR VOMITING Objective: Vital Signs Period Temp Pulse Resp BP Sys/Winkler Pulse Ox Last 24 Hr 97.9 F-99.4 F 66-84 8-20 90-121/41-73 100-100 Physical Exam: General: NAD, A&Ox3 Lungs: CTA bilaterally Heart: RRR, S1S2 Abd: Back dressing, c/d/i. Prakash drain in place. Soft, non-tender. Normoactive bowel sounds Ext: Moving all extremities. Warm, well-perfused. 2+ DP/PT bilaterally Neuro: CN 2-12 intact CBCD WBC 13.4 K/mm3 (4.0-10.0) H 03/08/17 08:17 RBC 2.91 M/mm3 (4.00-5.60) L 03/08/17 08:17 Hgb 8.2 GM/dL (11.7-16.9) L 03/08/17 08:17 Hct 24.7 % (35.4-49) L 03/08/17 08:17 MCV 84.8 fl (80-96) 03/08/17 08:17 MCHC 33.2 g/dl (32.0-35.9) 03/08/17 08:17 RDW 14.8 % (11.9-15.9) 03/08/17 08:17 Plt Count 152 K/MM3 (134-434) 03/08/17 08:17 MPV 8.6 fl (7.5-11.1) 03/08/17 08:17 CMP Sodium 140 mmol/L (136-145) 03/08/17 08:17 Potassium 4.5 mmol/L (3.5-5.1) 03/08/17 08:17 Chloride 106 mmol/L (98-107) 03/08/17 08:17 Carbon Dioxide 26 mmol/L (21-32) 03/08/17 08:17 Anion Gap 8 (8-16) 03/08/17 08:17 BUN 19 mg/dL (7-18) H D 03/08/17 08:17 Creatinine 1.2 mg/dL (0.7-1.3) 03/08/17 08:17 Creat Clearance w eGFR > 60 (>60) 03/08/17 08:17 Random Glucose 90 mg/dL (74-106) 03/08/17 08:17 Calcium 7.6 mg/dL (8.5-10.1) L 03/08/17 08:17 Total Bilirubin 0.7 mg/dL (0.2-1.0) D 03/08/17 08:17 AST 19 U/L (15-37) D 03/08/17 08:17 ALT 27 U/L (12-78) D 03/08/17 08:17 Alkaline Phosphatase 67 U/L (45-117) 03/08/17 08:17 Total Protein 5.6 g/dl (6.4-8.2) L 03/08/17 08:17 Albumin 2.6 g/dl (3.4-5.0) L 03/08/17 08:17 Microbiology 03/05/17 11:20 Tissue-Other Gram Stain - Final 03/05/17 11:20 Tissue-Other Tissue Culture - Final NO GROWTH OF AEROBIC ORGANISMS AFTER 48 HOURS INCUBATION 03/05/17 11:20 Tissue-Other Anaerobic Culture - Final NO ANAEROBES WERE ISOLATED Assessment: This is a 56 year old male with PMHx of multiple back surgeries, TIA , HTN, who is POD #0 FIDELIA L3-L5, revision decompression L2-S1, extension of fusion L1-L2. Plan: 1) POD #3 FIDELIA L3-L5, revision laminectomy L5, revision posterior decompression L2-S1, extension of fusion L1-L2 - Pain management per anesthesia. Dilaudid UNDER PRESSER - Toradol prn - Continue Ativan - Continue Neurontin - Monitor Prakash drain output: 290ml yesterday - Nuñez catheter discontinued once ambulating - Appreciate surgery note 2) HTN - Continue Lisinopril 3) F/E/N: - Advance diet per surgery - IV fluids 4) Prophylaxis: - SCDs only, NO chemical DVT prophylaxis per surgery - PT evaluation: WBAT bilateraly lower extremities - Incentive spirometer - Bowel regimen (patient passing gas): Colace, Miralax 5) Dispo: - Will require SNF placement once pain is under control with oral regimen - Requires continued inpatient care CODE STATUS: FULL CODE Visit type - Emergency Visit Emergency Visit: Yes ED Registration Date: 03/05/17 Care time: The patient presented to the Emergency Department on the above date and was hospitalized for further evaluation of their emergent condition. - New Patient This patient is new to me today: No - Critical Care Critical Care patient: No
[2017-03-08 09:43] LABS: ALBUMIN 2.6 g/dl (3.4-5.0); ALK PHOS 67 U/L (45-117); ANION GAP 8 (8-16); BILIRUBIN,TOTAL 0.7 mg/dL (0.2-1.0); BLOOD UREA NITROGEN 19 mg/dL (7-18); CALCIUM 7.6 mg/dL (8.5-10.1); CO2 26 mmol/L (21-32); CREATININE 1.2 mg/dL (0.7-1.3); GLUCOSE,RANDOM 90 mg/dL (74-106); MAGNESIUM 2.5 mg/dL (1.8-2.4); PHOSPHOROUS 3.8 mg/dL (2.5-4.9); SGOT/AST 19 U/L (15-37); SGPT/ALT 27 U/L (12-78); TOT PROT 5.6 g/dl (6.4-8.2)
[2017-03-08] MEDS: ELECTROLYTE-148 SOLN 1,000 ML IV SCH ×3 (14:27→22:47)
[2017-03-09] MEDS: GABAPENTIN 300 MG CAPSULE (FP) PO SCH ×2 (05:42→13:17)
[2017-03-09] MEDS: DOCUSATE SODIUM 100 MG CAPSULE (FP) PO SCH ×2 (05:42→13:17)
[2017-03-09] MEDS: HYDROmorphone *PCA* 10MG/50ML DISP.SYRIN PCA SCH ×3 (06:09→20:53)
[2017-03-09] MEDS: ELECTROLYTE-148 SOLN 1,000 ML IV SCH ×2 (07:16→19:25)
[2017-03-09] MEDS: KETOROLAC TROMETHAMINE 30 MG/1 ML VIAL IVPUSH PRN (10:16)
[2017-03-09] MEDS: LISINOPRIL 10 MG TABLET (FP) PO SCH (10:16)
[2017-03-09 11:57] LABS: BASO % 0.3 % (0-2.0); EOS % 4.2 % (0-4.5); HEMATOCRIT 25.5 % (35.4-49); HEMOGLOBIN 8.5 GM/dL (11.7-16.9); LYMPH % 20.2 % (8-40); MCHC 33.3 g/dl (32.0-35.9); MEAN CELL VOLUME 84.2 fl (80-96); MEAN PLT VOLUME 8.7 fl (7.5-11.1); MONO % 7.9 % (3.8-10.2); NEUT % 67.4 % (42.8-82.8); PLATELET COUNT 187 K/MM3 (134-434); RBC 3.03 M/mm3 (4.00-5.60); RDW 14.6 % (11.9-15.9); WHITE BLOOD COUNT 13.5 K/mm3 (4.0-10.0)
[2017-03-09 12:22] LABS: ALBUMIN 2.7 g/dl (3.4-5.0); ALK PHOS 68 U/L (45-117); ANION GAP 8 (8-16); BILIRUBIN,TOTAL 0.4 mg/dL (0.2-1.0); BLOOD UREA NITROGEN 12 mg/dL (7-18); CHLORIDE 105 mmol/L (98-107); CO2 26 mmol/L (21-32); GLUCOSE,RANDOM 111 mg/dL (74-106); MAGNESIUM 2.3 mg/dL (1.8-2.4); POTASSIUM 4.1 mmol/L (3.5-5.1); SGOT/AST 22 U/L (15-37); SGPT/ALT 28 U/L (12-78); SODIUM 139 mmol/L (136-145)
--- NOTE | 2017-03-09 15:48 | PN ---
Progress Note (short form) - Note Progress Note: Pot op day#4.Patient c/o pain score of 3-4/10 on Dilaudid CYCLING INSTRUCTOR and wants to continue it today.Patient stable and will continue security patrol officer today and will f/u tomorrow.
--- NOTE | 2017-03-09 19:21 | PN ---
Physical Exam: SUBJECTIVE: Patient seen and examined at bedside. present. States unable to weight bear on right leg due to pain, feels surgery did not improve leg pain at all. 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 Also no BM since before surgery. OBJECTIVE: Vital Signs Period Temp Pulse Resp BP Sys/Winkler Pulse Ox Last 24 Hr 97.7 F-98.7 F 62-758 16-20 105-122/58-72 94-98 GENERAL: The patient is awake, alert, and fully oriented, in no acute distress. LUNGS: Anterior breath sounds equal, clear to auscultation bilaterally, no wheezes, no crackles, no accessory muscle use. HEART: Regular rate and rhythm, S1, S2 ABDOMEN: Distended, firm, + bowel sounds; no guarding or rebound MUSCULOSKELETAL: Surgical dressing c/d/i; FAVIOLA drain with serosanguinous fluid EXTREMITIES: 2+ pulses, warm, well-perfused, no edema. NEUROLOGICAL: Cranial nerves II through XII grossly intact. Normal speech, gait not observed. Laboratory Results - last 24 hr 03/09/17 03/09/17 03/09/17 10:30 10:30 10:30 WBC 13.5 H RBC 3.03 L Hgb 8.5 L Hct 25.5 L MCV 84.2 MCH 28.0 MCHC 33.3 RDW 14.6 Plt Count 187 D MPV 8.7 Neutrophils % 67.4 Lymphocytes % 20.2 D Monocytes % 7.9 Eosinophils % 4.2 Basophils % 0.3 Sodium 139 Potassium 4.1 Chloride 105 Carbon Dioxide 26 Anion Gap 8 BUN 12 D Creatinine 1.0 Creat Clearance w eGFR > 60 Random Glucose 111 H D Calcium 8.0 L Magnesium 2.3 Total Bilirubin 0.4 D AST 22 ALT 28 Alkaline Phosphatase 68 Total Protein 6.0 L Albumin 2.7 L Blood Type A POSITIVE Antibody Screen Negative Active Medications Generic Name Dose Route Start Last Admin Trade Name Freq PRN Reason Stop Dose Admin Benzocaine/Menthol 1 each 03/07/17 19:07 Cepacol Lozenge - MM DAILY PRN SORE THROAT Diphenhydramine HCl 12.5 mg 03/07/17 19:17 Benadryl Injection - IVPUSH ONCE PRN FOR ITCHING Docusate Sodium 100 mg 03/07/17 22:00 03/09/17 13:17 Colace - PO 100 mg TID SILVIO Administration Gabapentin 300 mg 03/07/17 22:00 03/09/17 13:17 Neurontin - PO 300 mg TID SILVIO Administration Hydromorphone HCl 10 mg 03/07/17 19:07 03/09/17 14:59 Dilaudid Process Pumper - DEMO EVENT SPECIALIST 03/12/17 07:44 10 mg DEMO EVENT SPECIALIST SILVIO Administration Protocol Parenteral Electrolytes 1,000 mls @ 125 mls/hr 03/07/17 19:18 03/09/17 07:16 Plasma-Lyte 148 - IV 125 mls/hr ASDIR SILVIO Administration Ketorolac Tromethamine 30 mg 03/07/17 19:07 03/09/17 10:16 Toradol Injection - IVPUSH 03/12/17 08:09 30 mg Q6H PRN Administration BACK PAIN Lisinopril 10 mg 03/08/17 10:00 03/09/17 10:16 Prinivil PO 10 mg DAILY SILVIO Administration Lorazepam 1 mg 03/07/17 19:07 Ativan Injection - IVPUSH Q6H PRN PAIN Ondansetron HCl 4 mg 03/07/17 19:07 Zofran Injection IVPUSH Q6H PRN NAUSEA AND/OR VOMITING ASSESSMENT & PLAN 56 year-old male with PMH significant for seven previous back surgeries, HTN, and TIA. S/p revision of hardware L3-L5, revision decompression L2-S1, and extension of fusion L1-L2 on 03/05/17. Revision of hardware L3-L5, revision decompression L2-S1, and extension of fusion L1-L2 --POD #5 and pain is still an issue; continues on dilaudid DEMO EVENT SPECIALIST with continuous infusion of 0.2mg/hr and pushes 0.4mg q12 minutes --continue gabapentin; ketorolac PRN --drain removed --nuñez d/c'd Constipation --likely opioid related, colace and miralax ineffective --will get KUB to r/o post-op ileus; if no obstruction will give relistor Hypertension --continue lisinopril FEN Fluids: PO intake adequate Electrolytes: replete as indicated Nutrition: regular diet DVT prophylaxis: --SCDs only, NO chemical DVT prophylaxis per surgery Daily physical therapy Dispo: patient does not want [facility], wants [facility] in [place]; [facility] sent today. Requires continued inpatient care. Full Code. Visit type - Emergency Visit Emergency Visit: Yes ED Registration Date: 03/05/17 Care time: The patient presented to the Emergency Department on the above date and was hospitalized for further evaluation of their emergent condition. - New Patient This patient is new to me today: Yes Date on this admission: 03/10/17 - Critical Care Critical Care patient: No
--- NOTE | 2017-03-09 21:01 | PN ---
Progress Note (short form) - Note Progress Note: POD#5 C/O Dorsal neuralgic pain R dorsum foot Vitals as per chart data stable Abd Distended has not passed stool Wound Bandage dry to be left alone Drain removed PLAN Mobilize with PT D/c planning for Tues Pain mx to continue
[2017-03-10] MEDS: DOCUSATE SODIUM 100 MG CAPSULE (FP) PO SCH ×4 (00:54→21:24)
[2017-03-10] MEDS: GABAPENTIN 300 MG CAPSULE (FP) PO SCH ×4 (00:54→21:24)
[2017-03-10] MEDS: ELECTROLYTE-148 SOLN 1,000 ML IV SCH (00:55)
[2017-03-10] MEDS: HYDROmorphone *PCA* 10MG/50ML DISP.SYRIN PCA SCH ×2 (06:41→17:54)
--- NOTE | 2017-03-10 08:34 | PN ---
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
[2017-03-10] MEDS: LISINOPRIL 10 MG TABLET (FP) PO SCH (09:44)
[2017-03-10] MEDS: KETOROLAC TROMETHAMINE 30 MG/1 ML VIAL IVPUSH PRN ×2 (09:45→17:52)
[2017-03-10] MEDS ORDERED: Methylnaltrexone Bromide 12 MG/0.6 ML KIT SQ SCH (18:15)
--- NOTE | 2017-03-10 18:21 | PN ---
Physical Exam: SUBJECTIVE: Patient seen and examined. Complaining of constipation. OBJECTIVE: Vital Signs Period Temp Pulse Resp BP Sys/Winkler Pulse Ox Last 24 Hr 98.0 F-98.8 F 68-74 16-20 108-131/55-76 GENERAL: The patient is awake, alert, and fully oriented, in no acute distress. LUNGS: Anterior breath sounds equal, clear to auscultation bilaterally, no wheezes, no crackles, no accessory muscle use. HEART: Regular rate and rhythm, S1, S2 ABDOMEN: Distended, firm, + bowel sounds; no guarding or rebound MUSCULOSKELETAL: Surgical dressing with some serosanguinous drainage EXTREMITIES: 2+ pulses, warm, well-perfused, no edema. NEUROLOGICAL: Cranial nerves II through XII grossly intact. Normal speech, gait not observed. Active Medications Generic Name Dose Route Start Last Admin Trade Name Freq PRN Reason Stop Dose Admin Benzocaine/Menthol 1 each 03/07/17 19:07 Cepacol Lozenge - MM DAILY PRN SORE THROAT Diphenhydramine HCl 12.5 mg 03/07/17 19:17 Benadryl Injection - IVPUSH ONCE PRN FOR ITCHING Docusate Sodium 100 mg 03/07/17 22:00 03/10/17 14:54 Colace - PO 100 mg TID SILVIO Administration Gabapentin 300 mg 03/07/17 22:00 03/10/17 14:54 Neurontin - PO 300 mg TID SILVIO Administration Hydromorphone HCl 10 mg 03/07/17 19:07 03/10/17 17:54 Dilaudid Press Smith Helper - SUBGRADE TESTER 03/12/17 07:44 10 mg SUBGRADE TESTER SILVIO Administration Protocol Parenteral Electrolytes 1,000 mls @ 125 mls/hr 03/07/17 19:18 03/10/17 00:55 Plasma-Lyte 148 - IV 125 mls/hr ASDIR SILVIO Administration Ketorolac Tromethamine 30 mg 03/07/17 19:07 03/10/17 17:52 Toradol Injection - IVPUSH 03/12/17 08:09 30 mg Q6H PRN Administration BACK PAIN Lisinopril 10 mg 03/08/17 10:00 03/10/17 09:44 Prinivil PO 10 mg DAILY SILVIO Administration Lorazepam 1 mg 03/07/17 19:07 Ativan Injection - IVPUSH Q6H PRN PAIN Methylnaltrexone [place] 12 mg 03/10/17 18:15 03/10/17 18:20 Relistor - SQ 12 mg DAILY SILVIO Administration Ondansetron HCl 4 mg 03/07/17 19:07 Zofran Injection IVPUSH Q6H PRN NAUSEA AND/OR VOMITING ASSESSMENT/PLAN 56 year-old male with PMH significant for seven previous back surgeries, HTN, and TIA. S/p revision of hardware L3-L5, revision decompression L2-S1, and extension of fusion L1-L2 on 03/05/17. Revision of hardware L3-L5, revision decompression L2-S1, and extension of fusion L1-L2 --POD #5 and pain is still an issue; continues on dilaudid SUBGRADE TESTER with continuous infusion of 0.2mg/hr and pushes 0.4mg q12 minutes --continue gabapentin; ketorolac PRN --drain removed --nuñez d/c'd Constipation --KUB shows non-obstructive gas pattern --give Relistor Hypertension --continue lisinopril FEN Fluids: PO intake adequate Electrolytes: replete as indicated Nutrition: regular diet DVT prophylaxis: --SCDs only, NO chemical DVT prophylaxis per surgery Daily physical therapy Dispo: patient does not want [facility], wants [facility] in [place]; [facility] sent on Sunday. Requires continued inpatient care. Full Code. Visit type - Emergency Visit Emergency Visit: Yes ED Registration Date: 03/05/17 Care time: The patient presented to the Emergency Department on the above date and was hospitalized for further evaluation of their emergent condition. - New Patient This patient is new to me today: Yes Date on this admission: 03/10/17 - Critical Care Critical Care patient: No
[2017-03-10] MEDS ORDERED: HYDROmorphone *PCA* 10MG/50ML DISP.SYRIN PCA SCH (19:15)
[2017-03-11] MEDS: ELECTROLYTE-148 SOLN 1,000 ML IV SCH (01:19)
[2017-03-11] MEDS: DOCUSATE SODIUM 100 MG CAPSULE (FP) PO SCH ×2 (06:52→22:52)
[2017-03-11] MEDS: GABAPENTIN 300 MG CAPSULE (FP) PO SCH ×3 (06:52→22:51)
[2017-03-11] MEDS ORDERED: PATIENT'S OWN MEDICATION (NON-FORMULARY) (Oxycodone Hcl [Oxycontin] 30 MG) PO SCH (10:00)
--- NOTE | 2017-03-11 10:10 | PN ---
Physical Exam: SUBJECTIVE: Patient seen and examined. Sitting on edge of bed. Had multiple BMs following Reslistor yesterday. Still using EXECUTIVE ADVISOR. OBJECTIVE: Vital Signs Period Temp Pulse Resp BP Sys/Winkler Pulse Ox Last 24 Hr 98.1 F-98.6 F 59-74 18-20 83-118/49-67 94 GENERAL: The patient is awake, alert, and fully oriented, in no acute distress. Speech is slow, appears mildly oversedated LUNGS: Breath sounds CTA HEART: Regular rate and rhythm, S1, S2 without murmur, rub or gallop. ABDOMEN: Soft, nontender, nondistended, normoactive bowel sounds, no guarding, no rebound BACK: Surgicel dressing removed, sterile gauze along long vertical scar. Dressing is c/d/i, no seepage. Surrounding skin is intact, no erythema, no warmth NEUROLOGICAL: Cranial nerves II through XII grossly intact. Normal speech, Active Medications Generic Name Dose Route Start Last Admin Trade Name Freq PRN Reason Stop Dose Admin Docusate Sodium 300 mg 03/11/17 22:00 Colace - PO HS SILVIO Gabapentin 300 mg 03/07/17 22:00 03/11/17 06:52 Neurontin - PO 300 mg TID SILVIO Administration Lisinopril 10 mg 03/08/17 10:00 03/10/17 09:44 Prinivil PO 10 mg DAILY SILVIO Administration Oxycodone HCl 30 mg 03/11/17 10:15 Oxycontin - PO BID SILVIO Oxycodone HCl 10 mg 03/11/17 10:07 Roxicodone - PO Q6H PRN PAIN LEVEL 6-10 Polyethylene Glycol 17 gm 03/11/17 10:00 Miralax (For Daily Use) - PO BID [facility] ASSESSMENT/PLAN 56 year-old male with PMH significant for seven previous back surgeries, HTN, and TIA. S/p revision of hardware L3-L5, revision decompression L2-S1, and extension of fusion L1-L2 on 03/05/17. Revision of hardware L3-L5, revision decompression L2-S1, and extension of fusion L1-L2 --POD #6; stop EXECUTIVE ADVISOR; start oxycontin 30mg BID (home dose); oxycodone 10mg q6h PRN --continue gabapentin; d/c ketorolac Constipation --Reslistor yesterday with good results, multiple BMs --bowel regimen: colace, Miralax BID Hypertension --continue lisinopril FEN Fluids: PO intake adequate Electrolytes: replete as indicated Nutrition: regular diet DVT prophylaxis: --SCDs only, NO chemical DVT prophylaxis per surgery Daily physical therapy Dispo: patient does not want [facility], wants [facility] in [place]; [facility] sent on Sunday. Requires continued inpatient care. Full Code. Visit type - Emergency Visit Emergency Visit: Yes ED Registration Date: 03/05/17 Care time: The patient presented to the Emergency Department on the above date and was hospitalized for further evaluation of their emergent condition. - New Patient This patient is new to me today: No - Critical Care Critical Care patient: No
[2017-03-11] MEDS ORDERED: oxyCODONE HCL 20 MG SUSTAINED ACTING TABLET PO SCH (10:15)
--- NOTE | 2017-03-11 10:15 | PN ---
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
[2017-03-11] MEDS: POLYETHYLENE GLYCOL 3350 119 GM BTL PO SCH ×2 (10:22→22:53)
[2017-03-11] MEDS: oxyCODONE HCL 10 MG SUSTAINED ACTING TABLET PO SCH ×2 (10:44→22:51)
[2017-03-11] MEDS: LISINOPRIL 10 MG TABLET (FP) PO SCH (10:44)
[2017-03-11] MEDS: oxyCODONE HCL 5 MG TABLET PO PRN ×2 (13:54→20:19)
[2017-03-11] MEDS: PREGABALIN 50 MG CAPSULE PO SCH (22:51)
[2017-03-11] MEDS: METHOCARBAMOL 500 MG TABLET PO SCH (23:44)
[2017-03-12] MEDS: GABAPENTIN 300 MG CAPSULE (FP) PO SCH ×3 (06:08→22:14)
[2017-03-12] MEDS: oxyCODONE HCL 5 MG TABLET PO PRN ×3 (06:08→20:09)
--- NOTE | 2017-03-12 08:15 | PN ---
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
[2017-03-12] MEDS: PREGABALIN 50 MG CAPSULE PO SCH ×2 (09:22→22:16)
[2017-03-12] MEDS: oxyCODONE HCL 10 MG SUSTAINED ACTING TABLET PO SCH ×2 (09:22→22:15)
[2017-03-12] MEDS: LISINOPRIL 10 MG TABLET (FP) PO SCH (09:23)
[2017-03-12] MEDS: METHOCARBAMOL 500 MG TABLET PO SCH ×2 (10:42→22:14)
[2017-03-12] MEDS: POLYETHYLENE GLYCOL 3350 119 GM BTL PO SCH ×2 (10:43→22:17)
--- NOTE | 2017-03-12 13:10 | PN ---
Physical Exam: SUBJECTIVE: Patient seen and examined at bedside. Wants to stay at [facility] for his rehabilitation. Explained this is an acute care facility and we do not provide complete rehabilitative services. OBJECTIVE: Vital Signs Period Temp Pulse Resp BP Sys/Winkler Pulse Ox Last 24 Hr 98 F-98.7 F 61-77 16-20 98-139/44-65 98 GENERAL: The patient is awake, alert. Speech is slow and mildly slurred. Repeats himself, and rambles. Appears overly sedated. LUNGS: Breath sounds CTA HEART: Regular rate and rhythm, S1, S2 without murmur, rub or gallop. ABDOMEN: Soft, nontender, nondistended, normoactive bowel sounds, no guarding, no rebound BACK: Sterile gauze along long vertical scar is c/d/i, no seepage. Surrounding skin is intact, no erythema. Active Medications Generic Name Dose Route Start Last Admin Trade Name Freq PRN Reason Stop Dose Admin Docusate Sodium 300 mg 03/11/17 22:00 03/11/17 22:52 Colace - PO 300 mg HS SILVIO Administration Gabapentin 300 mg 03/07/17 22:00 03/12/17 06:08 Neurontin - PO 300 mg TID SILVIO Administration Lisinopril 10 mg 03/08/17 10:00 03/12/17 09:23 Prinivil PO 10 mg DAILY SILVIO Administration Methocarbamol 500 mg 03/11/17 22:00 03/12/17 10:42 Robaxin - PO 500 mg BID SILVIO Administration Oxycodone HCl 30 mg 03/11/17 10:45 03/12/17 09:22 Oxycontin - PO 30 mg BID SILVIO Administration Oxycodone HCl 5 mg 03/12/17 13:03 Roxicodone - PO Q6H PRN PAIN LEVEL 6-10 Polyethylene Glycol 17 gm 03/11/17 10:00 03/12/17 10:43 Miralax (For Daily Use) - PO Not Given BID SILVIO Pregabalin 100 mg 03/11/17 22:00 03/12/17 09:22 Lyrica - PO 100 mg BID SILVIO Administration ASSESSMENT/PLAN 56 year-old male with PMH significant for seven previous back surgeries, HTN, and TIA. S/p revision of hardware L3-L5, revision decompression L2-S1, and extension of fusion L1-L2 on 03/05/17. Revision of hardware L3-L5, revision decompression L2-S1, and extension of fusion L1-L2 --POD #7 --switched to PO pain meds yesterday but overly sedated today; decrease oxycontin to 20mg BID and oxycodone to 5mg q6h PRN --continue gabapentin; d/c'd ketorolac Constipation, resolved --bowel regimen: colace, Miralax BID Hypertension --continue lisinopril FEN Fluids: PO intake adequate Electrolytes: replete as indicated Nutrition: regular diet DVT prophylaxis: --SCDs only, NO chemical DVT prophylaxis per surgery Daily physical therapy Dispo: patient does not want [facility]; advised he was rejected from [facility] in [place]. 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 Full code. Visit type - Emergency Visit Emergency Visit: Yes ED Registration Date: 03/05/17 Care time: The patient presented to the Emergency Department on the above date and was hospitalized for further evaluation of their emergent condition. - New Patient This patient is new to me today: No - Critical Care Critical Care patient: No
[2017-03-12] MEDS ORDERED: PT OWN MED DRAWER 7, Y5N ONE (22:11)
[2017-03-12] MEDS: DOCUSATE SODIUM 100 MG CAPSULE (FP) PO SCH (22:16)
[2017-03-13] MEDS: oxyCODONE HCL 5 MG TABLET PO PRN ×3 (02:30→19:39)
[2017-03-13] MEDS: GABAPENTIN 300 MG CAPSULE (FP) PO SCH ×3 (07:00→21:05)
[2017-03-13] MEDS ORDERED: PT OWN MED DRAWER 7, Y5N ONE (09:13)
[2017-03-13] MEDS: METHOCARBAMOL 500 MG TABLET PO SCH ×2 (09:15→21:08)
[2017-03-13] MEDS: POLYETHYLENE GLYCOL 3350 119 GM BTL PO SCH ×2 (09:16→21:10)
[2017-03-13] MEDS: oxyCODONE HCL 10 MG SUSTAINED ACTING TABLET PO SCH ×2 (09:16→21:05)
[2017-03-13] MEDS: PREGABALIN 50 MG CAPSULE PO SCH ×2 (09:16→21:05)
[2017-03-13] MEDS: LISINOPRIL 10 MG TABLET (FP) PO SCH (09:16)
[2017-03-13] MEDS: DOCUSATE SODIUM 100 MG CAPSULE (FP) PO SCH ×2 (21:05→21:11)
--- NOTE | 2017-03-13 22:28 | PN ---
Physical Exam: SUBJECTIVE: Patient seen and examined. OBJECTIVE: Vital Signs Period Temp Pulse Resp BP Sys/Winkler Pulse Ox Last 24 Hr 98 F-98.6 F 60-77 16-20 107-120/56-91 92 GENERAL: The patient is awake, alert and fully oriented. Speech is clear. LUNGS: Breath sounds CTA HEART: Regular rate and rhythm, S1, S2 without murmur, rub or gallop. ABDOMEN: Soft, nontender, nondistended, normoactive bowel sounds, no guarding, no rebound BACK: Sterile gauze along long vertical scar is c/d/i, no seepage. Surrounding skin is intact, no erythema. Active Medications Generic Name Dose Route Start Last Admin Trade Name Freq PRN Reason Stop Dose Admin Docusate Sodium 300 mg 03/11/17 22:00 03/13/17 21:11 Colace - PO Not Given HS SILVIO Gabapentin 300 mg 03/07/17 22:00 03/13/17 21:05 Neurontin - PO 300 mg TID SILVIO Administration Lisinopril 10 mg 03/08/17 10:00 03/13/17 09:16 Prinivil PO 10 mg DAILY SILVIO Administration Methocarbamol 500 mg 03/11/17 22:00 03/13/17 21:08 Robaxin - PO 500 mg BID SILVIO Administration Oxycodone HCl 5 mg 03/12/17 13:03 03/13/17 19:39 Roxicodone - PO 5 mg Q6H PRN Administration PAIN LEVEL 6-10 Oxycodone HCl 20 mg 03/12/17 13:03 03/13/17 21:05 Oxycontin - PO 20 mg BID SILVIO Administration Polyethylene Glycol 17 gm 03/11/17 10:00 03/13/17 21:10 Miralax (For Daily Use) - PO Not Given BID SILVIO Pregabalin 100 mg 03/11/17 22:00 03/13/17 21:05 Lyrica - PO 100 mg BID SILVIO Administration ASSESSMENT/PLAN 56 year-old male with PMH significant for seven previous back surgeries, HTN, and TIA. S/p revision of hardware L3-L5, revision decompression L2-S1, and extension of fusion L1-L2 on 03/05/17. Revision of hardware L3-L5, revision decompression L2-S1, and extension of fusion L1-L2 --POD #8 --decreased PO pain meds yesterday to good effect; pain is well-managed and patient is much clearer Constipation, resolved --bowel regimen: colace, Miralax BID Hypertension --continue lisinopril FEN Fluids: PO intake adequate Electrolytes: replete as indicated Nutrition: regular diet DVT prophylaxis: --SCDs only, NO chemical DVT prophylaxis per surgery Daily physical therapy Dispo: meeting today with patient, , Dir. of Case Management, Dir. of Admitting. Discharge planning in progress. Full code. Visit type - Emergency Visit Emergency Visit: Yes ED Registration Date: 03/05/17 Care time: The patient presented to the Emergency Department on the above date and was hospitalized for further evaluation of their emergent condition. - New Patient This patient is new to me today: No - Critical Care Critical Care patient: No
[2017-03-14] MEDS: oxyCODONE HCL 5 MG TABLET PO PRN ×3 (02:31→22:35)
[2017-03-14] MEDS: GABAPENTIN 300 MG CAPSULE (FP) PO SCH ×3 (05:56→22:37)
[2017-03-14] MEDS ORDERED: PT OWN MED DRAWER 7, Y5N ONE ×2 (11:04→22:33)
[2017-03-14] MEDS: LISINOPRIL 10 MG TABLET (FP) PO SCH (11:06)
[2017-03-14] MEDS: PREGABALIN 50 MG CAPSULE PO SCH ×2 (11:06→22:36)
[2017-03-14] MEDS: METHOCARBAMOL 500 MG TABLET PO SCH ×2 (11:06→22:37)
[2017-03-14] MEDS: oxyCODONE HCL 10 MG SUSTAINED ACTING TABLET PO SCH ×2 (11:06→22:36)
[2017-03-14] MEDS: POLYETHYLENE GLYCOL 3350 119 GM BTL PO SCH ×2 (11:07→22:37)
--- NOTE | 2017-03-14 18:56 | PN ---
Progress Note (short form) - Note Progress Note: 56M doing well s/p FIDELIA L3-L5, revision decompression L2-S1, extension of fusion (uninstrumented L1-L2) POD #9. Pain well controlled. (-) Acute events overnight. (-) Overnight history of headaches, chest pain, nausea, vomiting, chills, & sweats. (+) Shortness of breath when afflicted with pain. (+) Walked in hallway w/PT. (+) Voiding; (+) Flatus; (-) BM. All labs and vitals reviewed. PE: AAO x 3, NAD. Spine: Dressing C/D/I. B/L LE NV exam at baseline. 56M s/p FIDELIA L3-L5, revision decompression L2-S1, extension of fusion ( uninstrumented L1-L2) POD #9. -Pain control. -Mechanical DVT PPx. only. -Incentive spirometry/aggressive pulmonary toilet. -PT/OR/Rehab, OOB. -WBAT B/L LE. -Discharge planning: Pt. has had numerous previous post-op rehabilitation stays at [facility] and would like to return there. Please facilitate.
[2017-03-14] MEDS: DOCUSATE SODIUM 100 MG CAPSULE (FP) PO SCH (22:35)
--- NOTE | 2017-03-15 00:06 | DS ---
Physical Exam: SUBJECTIVE: Patient seen and examined OBJECTIVE: Vital Signs Period Temp Pulse Resp BP Sys/Winkler Pulse Ox Last 24 Hr 97.3 F-98.4 F 59-69 16-18 95-132/51-81 96 PHYSICAL EXAM GENERAL: The patient is awake, alert and fully oriented. Speech is clear. LUNGS: Breath sounds CTA HEART: Regular rate and rhythm, S1, S2 without murmur, rub or gallop. ABDOMEN: Soft, nontender, nondistended, normoactive bowel sounds, no guarding, no rebound BACK: Sterile gauze along long vertical scar is c/d/i, no seepage. Surrounding skin is intact, no erythema. LABS CBCD WBC 13.5 K/mm3 (4.0-10.0) H 03/09/17 10:30 RBC 3.03 M/mm3 (4.00-5.60) L 03/09/17 10:30 Hgb 8.5 GM/dL (11.7-16.9) L 03/09/17 10:30 Hct 25.5 % (35.4-49) L 03/09/17 10:30 MCV 84.2 fl (80-96) 03/09/17 10:30 MCHC 33.3 g/dl (32.0-35.9) 03/09/17 10:30 RDW 14.6 % (11.9-15.9) 03/09/17 10:30 Plt Count 187 K/MM3 (134-434) D 03/09/17 10:30 MPV 8.7 fl (7.5-11.1) 03/09/17 10:30 CMP Sodium 139 mmol/L (136-145) 03/09/17 10:30 Potassium 4.1 mmol/L (3.5-5.1) 03/09/17 10:30 Chloride 105 mmol/L (98-107) 03/09/17 10:30 Carbon Dioxide 26 mmol/L (21-32) 03/09/17 10:30 Anion Gap 8 (8-16) 03/09/17 10:30 BUN 12 mg/dL (7-18) D 03/09/17 10:30 Creatinine 1.0 mg/dL (0.7-1.3) 03/09/17 10:30 Creat Clearance w eGFR > 60 (>60) 03/09/17 10:30 Calcium 8.0 mg/dL (8.5-10.1) L 03/09/17 10:30 Total Bilirubin 0.4 mg/dL (0.2-1.0) D 03/09/17 10:30 AST 22 U/L (15-37) 03/09/17 10:30 ALT 28 U/L (12-78) 03/09/17 10:30 Alkaline Phosphatase 68 U/L (45-117) 03/09/17 10:30 Total Protein 6.0 g/dl (6.4-8.2) L 03/09/17 10:30 Albumin 2.7 g/dl (3.4-5.0) L 03/09/17 10:30 HOSPITAL COURSE: Date of Admission:03/05/17 Date of Discharge: 03/15/17 56 year-old male with PMH significant for multiple previous back surgeries, HTN , and TIA. S/p revision of hardware L3-L5, revision decompression L2-S1, and extension of fusion L1-L2 on 03/05/17. Revision of hardware L3-L5, revision decompression L2-S1, and extension of fusion L1-L2 --pain well-managed on present PO regimen; goal is to decrease meds as tolerated Constipation, resolved --opioid-induced constipation relieved with Relistor x 1 dose --ongoing bowel regimen: colace, Miralax BID Hypertension --continue lisinopril DVT prophylaxis: --SCDs only, NO chemical DVT prophylaxis per surgery Minutes to complete discharge: 35 Discharge Summary Reason For Visit: SPINAL STENOSIS Condition: Improved - Instructions Referrals: Bunny Sahni MD [Staff Physician] - 2 Weeks [facility]position: [facility] - Home Medications Comprehensive Discharge Medication List: Ambulatory Orders Esomeprazole Magnesium [Nexium 24Hr] 20 mg PO DAILY 02/23/17 L.acidoph,Paracasei, B.lactis [Probiotic] 1 each PO DAILY 02/23/17 Docusate Sodium [Colace -] 300 mg PO HS capsule 03/14/17 Gabapentin [Neurontin -] 300 mg PO TID capsule 03/14/17 Lisinopril [Prinivil] 10 mg PO DAILY tablet 03/14/17 Methocarbamol [Robaxin -] 500 mg PO BID tablet 03/14/17 Oxycodone HCl [Roxicodone -] 5 mg PO Q6H PRN #20 tablet MDD 4 03/14/17 Oxycodone Sr [Oxycontin] 20 mg PO BID #60 tab.er.12h MDD 2 03/14/17 Polyethylene Glycol 3350 [Miralax 119 gm Btl -] 17 gm PO BID bottle 03/14/17 Pregabalin [Lyrica -] 100 mg PO BID #60 capsule MDD 2 03/14/17 This patient is new to me today: No Emergency Visit: Yes ED Registration Date: 03/05/17 Care time: The patient presented to the Emergency Department on the above date and was hospitalized for further evaluation of their emergent condition. Critical Care patient: No - Discharge Referral Referred to [facility] No
[2017-03-15] MEDS: oxyCODONE HCL 5 MG TABLET PO PRN (03:35)
[2017-03-15] MEDS: GABAPENTIN 300 MG CAPSULE (FP) PO SCH ×2 (07:02→15:35)
[2017-03-15] MEDS: oxyCODONE HCL 10 MG SUSTAINED ACTING TABLET PO SCH (09:50)
[2017-03-15] MEDS: PREGABALIN 50 MG CAPSULE PO SCH (09:50)
[2017-03-15] MEDS: POLYETHYLENE GLYCOL 3350 119 GM BTL PO SCH (09:50)
[2017-03-15] MEDS: LISINOPRIL 10 MG TABLET (FP) PO SCH (09:50)
[2017-03-15] MEDS: METHOCARBAMOL 500 MG TABLET PO SCH (09:51)
--- NOTE | 2017-03-15 12:05 | PN ---
Progress Note (short form) - Note Progress Note: Subjective: The patient was seen at the bedside, he was sitting on the edge of the bed, he is still reporting pain to his back. Patient has bed at [facility], awaiting final decision from the patient Current Medications Generic Name Dose Route Start Last Admin Trade Name Freq PRN Reason Stop Dose Admin Docusate Sodium 300 mg 03/11/17 22:00 03/14/17 22:35 Colace - PO 300 mg HS SILVIO Administration Gabapentin 300 mg 03/07/17 22:00 03/15/17 07:02 Neurontin - PO 300 mg TID SILVIO Administration Lisinopril 10 mg 03/08/17 10:00 03/15/17 09:50 Prinivil PO 10 mg DAILY SILVIO Administration Methocarbamol 500 mg 03/11/17 22:00 03/15/17 09:51 Robaxin - PO 500 mg BID SILVIO Administration Oxycodone HCl 5 mg 03/12/17 13:03 03/15/17 03:35 Roxicodone - PO 5 mg Q6H PRN Administration PAIN LEVEL 6-10 Oxycodone HCl 20 mg 03/12/17 13:03 03/15/17 09:50 Oxycontin - PO 20 mg BID SILVIO Administration Polyethylene Glycol 17 gm 03/11/17 10:00 03/15/17 09:50 Miralax (For Daily Use) - PO Not Given BID SILVIO Pregabalin 100 mg 03/11/17 22:00 03/15/17 09:50 Lyrica - PO 100 mg BID SILVIO Administration Objective: Vital Signs Period Temp Pulse Resp BP Sys/Winkler Pulse Ox Last 24 Hr 97.3 F-98.6 F 63-79 16-20 114-132/59-77 93-94 CBCD WBC 13.5 K/mm3 (4.0-10.0) H 03/09/17 10:30 RBC 3.03 M/mm3 (4.00-5.60) L 03/09/17 10:30 Hgb 8.5 GM/dL (11.7-16.9) L 03/09/17 10:30 Hct 25.5 % (35.4-49) L 03/09/17 10:30 MCV 84.2 fl (80-96) 03/09/17 10:30 MCHC 33.3 g/dl (32.0-35.9) 03/09/17 10:30 RDW 14.6 % (11.9-15.9) 03/09/17 10:30 Plt Count 187 K/MM3 (134-434) D 03/09/17 10:30 MPV 8.7 fl (7.5-11.1) 03/09/17 10:30 CMP Sodium 139 mmol/L (136-145) 03/09/17 10:30 Potassium 4.1 mmol/L (3.5-5.1) 03/09/17 10:30 Chloride 105 mmol/L (98-107) 03/09/17 10:30 Carbon Dioxide 26 mmol/L (21-32) 03/09/17 10:30 Anion Gap 8 (8-16) 03/09/17 10:30 BUN 12 mg/dL (7-18) D 03/09/17 10:30 Creatinine 1.0 mg/dL (0.7-1.3) 03/09/17 10:30 Creat Clearance w eGFR > 60 (>60) 03/09/17 10:30 Random Glucose 111 mg/dL (74-106) H D 03/09/17 10:30 Calcium 8.0 mg/dL (8.5-10.1) L 03/09/17 10:30 Total Bilirubin 0.4 mg/dL (0.2-1.0) D 03/09/17 10:30 AST 22 U/L (15-37) 03/09/17 10:30 ALT 28 U/L (12-78) 03/09/17 10:30 Alkaline Phosphatase 68 U/L (45-117) 03/09/17 10:30 Total Protein 6.0 g/dl (6.4-8.2) L 03/09/17 10:30 Albumin 2.7 g/dl (3.4-5.0) L 03/09/17 10:30 Microbiology 03/05/17 11:20 Tissue-Other Gram Stain - Final 03/05/17 11:20 Tissue-Other Tissue Culture - Final NO GROWTH OF AEROBIC ORGANISMS AFTER 48 HOURS INCUBATION 03/05/17 11:20 Tissue-Other Anaerobic Culture - Final NO ANAEROBES WERE ISOLATED Assessment: This is a 56 year old male with PMHx of multiple back surgeries, TIA , HTN, who is POD #0 FIDELIA L3-L5, revision decompression L2-S1, extension of fusion L1-L2. Plan: 1) POD #10 FIDELIA L3-L5, revision laminectomy L5, revision posterior decompression L2-S1, extension of fusion L1-L2 - Oxycodone - Lyrica - Methocarbamol - Colace - Appreciate surgery note 2) HTN - Continue Lisinopril 3) F/E/N: - Sodium controlled diet 4) Prophylaxis: - SCDs only, NO chemical DVT prophylaxis per surgery - PT evaluation: WBAT bilateraly lower extremities - Incentive spirometer 5) Dispo: - Awaiting ok by patient for SNF CODE STATUS: FULL CODE Visit type - Emergency Visit Emergency Visit: Yes ED Registration Date: 03/05/17 Care time: The patient presented to the Emergency Department on the above date and was hospitalized for further evaluation of their emergent condition. - New Patient This patient is new to me today: No - Critical Care Critical Care patient: No
[2017-03-15 15:05] VITALS: PULSE 72; TEMP 98.2
[2017-03-15 15:09] VITALS: BP 116/72
[2017-03-15] MEDS ORDERED: oxyCODONE HCL 5 MG TABLET PO ONE (15:23)
== END 2017-03-15 16:02 | DRG 460 ==
LOC: EDSTATUS 08:00 → JSAMEDAYSX 03-05 06:17 → JICU 03-05 20:29 → J8W 03-07 18:41
PROVIDERS: ADMIT Orthopaedic Surgery Orthopaedic Surgery of the Spine; ATTEND Registered Nurse
PROC: 0SG3071 Fusion of Lumbosacral Joint with Autologous Tissue Substitute, Posterior Approach, Posterior Column, Open Approach (ICD-10-PCS; 2017-03-05)
PROC: 01NB0ZZ Release Lumbar Nerve, Open Approach (ICD-10-PCS; 2017-03-05)
PROC: 0SJ Lower Joints, Inspection (ICD-10-PCS; 2017-03-05)
PROC: 0QP004Z Removal of Internal Fixation Device from Lumbar Vertebra, Open Approach (ICD-10-PCS; principal; 2017-03-05 08:00)
DX: M48.061 Spinal stenosis, lumbar region without neurogenic claudication (principal); N17.9 Acute kidney failure, unspecified; M54.17 Radiculopathy, lumbosacral region; I10 Essential (primary) hypertension; Z88.0 Allergy status to penicillin; Z86.73 Personal history of transient ischemic attack (TIA), and cerebral infarction without residual deficits; K59.03 Drug induced constipation; T40.2X5A Adverse effect of other opioids, initial encounter
CPT/HCPCS: 36415; 74018-TC; 76000-TC; 80048; 80053; 83735; 84100; 85025; 85027; 86850; 86891; 86900; 86901; 87070; 87075; 87205; 88300-TC; 93971; 94760; 97116-GP; 97161-GP; J1644

== ENCOUNTER 2019-02-05 08:59 | Inpatient (IN) | payer OTHER, BC ==
[2019-01-30 11:44] VITALS: BMI 35.4
[2019-02-05] MEDS ORDERED: DEXAMETHASONE SOD PHOSPHATE/PF 10 MG/ML SDV ONE (10:07)
[2019-02-05] MEDS ORDERED: MIDAZOLAM HCL 2 MG/2 ML SINGLE DOSE VIAL ONE ×2 (10:07→11:58)
[2019-02-05] MEDS ORDERED: BUPIVACAINE HCL/PF 0.5% (5 MG/ML) 30 ML VIAL IJ ONE (10:08)
[2019-02-05] MEDS ORDERED: BENZOIN/ALOE VERA/STORAX/TOLU 58 ML BOTTLE ONE ×2 (11:19→11:20)
[2019-02-05] MEDS ORDERED: LIDOCAINE HCL/PF 2% SDV 5ML VIAL ONE (11:58)
[2019-02-05] MEDS ORDERED: PROPOFOL 20 ML ONE (12:04)
[2019-02-05] MEDS ORDERED: VANCOMYCIN 1,000 MG VIAL (RESTRICTED TO ID ONLY) ONE (12:34)
[2019-02-05] MEDS ORDERED: ceFAZolin SODIUM 1 GM VIAL ONE ×2 (13:03→13:04)
[2019-02-05] MEDS ORDERED: ONDANSETRON 4 MG/2 ML VIAL IVPUSH PRN ×2 (13:22→14:03)
[2019-02-05] MEDS ORDERED: oxyCODONE HCL 5 MG TABLET PO PRN (13:22)
[2019-02-05] MEDS ORDERED: LACTATED RINGERS SOLUTION 1,000 ML IV SCH ×2 (13:30→14:15)
[2019-02-05] MEDS ORDERED: MAG HYDROX/AL HYDROX/SIMETH 30 ML UNIT-DOSE CUP PO PRN (14:03)
[2019-02-05] MEDS ORDERED: LABETALOL HCL 5 MG/1 ML (100MG/20 ML VIAL) ONE (14:06)
[2019-02-05] MEDS ORDERED: hydrALAZINE HCL 20 MG/ML VIAL ONE (14:21)
[2019-02-05] MEDS ORDERED: HYDROmorphone HCL/PF 1 MG/ML AMP ONE (14:58)
[2019-02-05] MEDS: HYDROmorphone HCl 2 MG/ML VIAL ONE ×2 (15:06→15:09)
[2019-02-05] MEDS ORDERED: ONDANSETRON 4 MG/2 ML VIAL ONE (15:22)
[2019-02-05] MEDS ORDERED: HYDROmorphone HCL CARPU-JECT 2 MG/1 ML DISP.SYRIN IVPB PRN (15:25)
[2019-02-05] MEDS ORDERED: HYDROmorphone HCl 2 MG/ML VIAL IVPUSH ONE (15:26)
[2019-02-05] MEDS ORDERED: ACETAMINOPHEN 1000 MG/100 ML VIAL (NON FORMULARY) IVPB ONE (15:29)
--- NOTE | 2019-02-05 17:22 | PN ---
Progress Note (short form) - Note Progress Note: 58M s/p RIGHT ankle Spear-Villatoro procedure POD #0. -Pain control: per anaesthesia team. -DVT PPx: -Chemical: ASA 81mg PO BID x 6 weeks. -Mechanical: ARISTIDES's, SCD's. -Incentive spirometry q15 min. -PT/OT/Rehab, OOB. -Strict NWB RLE. -Post-op Ancef x 3 doses. -f/u post-op TOV: 8 hours max. -f/u AM labs. -Diet as tolerated. -Care per medical hospitalist team. -Discharge planning: f/u [facility] [place] Office Sunday01/15/2019; call for appointment . -Will follow. Bunny Sahni MD (Orthopaedic Surgery).
--- NOTE | 2019-02-05 17:24 | OP ---
Operative Note - Note: Operative Date: 02/05/19 Pre-Operative Diagnosis: Right ankle instability Operation: Right ankle Spear-Villatoro procedure. Findings: Attenuated ATFL. Post-Operative Diagnosis: Same as Pre-op Surgeon: Bunny Sahni Rigging Loft Mechanic: Maycol Sahni Anesthesiologist/LEAD TEACHER: July Orozco Anesthesia: General Estimated Blood Loss (mls): 20 Drains & Tubes with Location: 1 x deep HemoVac Fluid Volume Replaced (mls): 1,400 Operative Report Dictated: Yes
[2019-02-05] MEDS ORDERED: oxyCODONE HCL 10 MG SUSTAINED ACTING TABLET PO SCH (18:00)
[2019-02-05] MEDS ORDERED: oxyCODONE HCL 5 MG TABLET PO SCH (18:00)
[2019-02-05] MEDS: CEFAZOLIN 2 GM/D5W 2 GM/50 ML ML IVPB SCH (18:16)
[2019-02-05] MEDS: GABAPENTIN 300 MG CAPSULE (FP) PO PRN ×2 (18:17→21:22)
[2019-02-05] MEDS: HYDROmorphone HCl 2 MG/ML VIAL IVPB PRN (21:18)
[2019-02-05] MEDS: SENNOSIDES/DOCUSATE COMBO (SENNA PLUS) TABLET (UD) PO SCH (21:21)
[2019-02-05] MEDS: PREGABALIN 50 MG CAPSULE PO SCH (21:22)
[2019-02-05] MEDS: ASPIRIN COATED 81 MG TABLET.EC PO SCH (21:22)
[2019-02-05] MEDS ORDERED: PATIENT'S OWN MEDICATION (NON-FORMULARY) (L.Acidoph,Paracasei, B.Lactis [Probiotic] 1 EACH PO SCH (22:00)
--- NOTE | 2019-02-05 22:01 | CONSULT ---
"Consultation: REQUESTING PROVIDER: CONSULT REQUEST: We have been asked to medically evaluate this patient for ( specify). HISTORY OF PRESENT ILLNESS: REVIEW OF SYSTEMS: CONSTITUTIONAL: Absent: fever, chills, diaphoresis, generalized weakness, malaise, loss of appetite, weight change HEENT: Absent: rhinorrhea, nasal congestion, throat pain, throat swelling, difficulty swallowing, mouth swelling, ear pain, eye pain, visual changes CARDIOVASCULAR: Absent: chest pain, syncope, palpitations, irregular heart rate, lightheadedness , peripheral edema RESPIRATORY: Absent: cough, shortness of breath, dyspnea with exertion, orthopnea, wheezing, stridor, hemoptysis GASTROINTESTINAL: Absent: abdominal pain, abdominal distension, nausea, vomiting, diarrhea, constipation, melena, hematochezia GENITOURINARY: Absent: dysuria, frequency, urgency, hesitancy, hematuria, flank pain, genital pain MUSCULOSKELETAL: Absent: myalgia, arthralgia, joint swelling, back pain, neck pain SKIN: Absent: rash, itching, pallor HEMATOLOGIC/IMMUNOLOGIC: Absent: easy bleeding, easy bruising, lymphadenopathy, frequent infections ENDOCRINE: Absent: unexplained weight gain, unexplained weight loss, heat intolerance, cold intolerance NEUROLOGIC: Absent: headache, focal weakness or paresthesias, dizziness, unsteady gait, seizure, mental status changes, bladder or bowel incontinence PSYCHIATRIC: Absent: anxiety, depression, suicidal or homicidal ideation, hallucinations. PHYSICAL EXAMINATION Vital Signs - 24 hr 02/05/19 02/05/19 02/05/19 10:12 14:05 15:05 Temperature 98.3 F 98.0 F Pulse Rate 74 78 83 Respiratory 18 20 20 Rate Blood Pressure 140/92 114/67 126/64 O2 Sat by Pulse 95 93 L 95 Oximetry (%) 02/05/19 02/05/19 02/05/19 15:10 15:15 15:20 Temperature Pulse Rate 87 88 87 Respiratory 20 20 20 Rate Blood Pressure 118/62 122/68 118/73 O2 Sat by Pulse 94 L 94 L 94 L Oximetry (%) 02/05/19 02/05/19 02/05/19 15:35 15:50 16:05 Temperature Pulse Rate 88 88 81 Respiratory 20 20 20 Rate Blood Pressure 121/64 116/62 114/67 O2 Sat by Pulse 90 L 93 L 93 L Oximetry (%) 02/05/19 02/05/19 16:08 19:06 Temperature 98.0 F Pulse Rate 81 Respiratory 20 Rate Blood Pressure 114/67 O2 Sat by Pulse 93 L 94 L Oximetry (%) GENERAL: Awake, alert, and fully oriented, in no acute distress. HEAD: Normal with no signs of trauma. EYES: Pupils equal, round and reactive to light, extraocular movements intact, sclera anicteric, conjunctiva clear. No lid lag. EARS, NOSE, THROAT: Ears normal, nares patent, oropharynx clear without exudates. Moist mucous membranes. NECK: Normal range of motion, supple without lymphadenopathy, JVD, or masses. LUNGS: Breath sounds equal, clear to auscultation bilaterally. No wheezes, and no crackles. No accessory muscle use. HEART: Regular rate and rhythm, normal S1 and S2 without murmur, rub or gallop. ABDOMEN: Soft, nontender, not distended, normoactive bowel sounds, no guarding, no rebound, no masses. No hepatomegaly or splenomegaly. MUSCULOSKELETAL: Normal range of motion at all joints. No bony deformities or tenderness. No CVA tenderness. UPPER EXTREMITIES: 2+ pulses, warm, well-perfused. No cyanosis. No clubbing. Cap refill <2 seconds. No peripheral edema. LOWER EXTREMITIES: 2+ pulses, warm, well-perfused. No calf tenderness. No peripheral edema. NEUROLOGICAL: Cranial nerves II-XII intact. Normal speech. Normal gait. PSYCHIATRIC: Cooperative. Good eye contact. Appropriate mood and affect. SKIN: Warm, dry, normal turgor, no rashes or lesions noted. Active Medications Generic Name Dose Route Start Last Admin Trade Name Freq PRN Reason Stop Dose Admin Al Hydroxide/Mg Hydroxide 30 ml 02/05/19 14:03 Mylanta Oral Suspension - PO Q4H PRN DYSPEPSIA Aspirin 81 mg 02/05/19 22:00 02/05/19 21:22 Ecotrin - PO 81 mg BID SILVIO Administration Gabapentin 300 mg 02/05/19 22:00 Neurontin - PO TID SILVIO Hydromorphone HCl 2 mg 02/05/19 19:50 02/05/19 21:18 Dilaudid Vial - IVPB 2 mg Q4H PRN Administration PAIN LEVEL 4 - 6 Lactated Ringer's 1,000 mls @ 125 mls/hr 02/05/19 13:30 Lactated Ringers Solution IV ASDIR SILVIO Cefazolin Sodium/Dextrose 2 gm in 50 mls @ 100 mls/hr 02/05/19 18:00 18:16 Ancef 2 Gm Premixed Ivpb - IVPB 02/06/19 02:29 100 mls/hr Q8H-IV SILVIO Administration Lactated Ringer's 1,000 mls @ 125 mls/hr 02/05/19 14:15 Lactated Ringers Solution IV 02/06/19 06:00 ASDIR SILVIO Lisinopril 10 mg 02/06/19 10:00 Prinivil PO DAILY SILVIO Multivitamins/Minerals/Vitamin C 1 tab 02/06/19 10:00 Tab-A-Vit - PO DAILY [facility] Non-Formulary Medication 800 mg 02/06/19 10:00 Metaxalone [Skelaxin] PO DAILY SILVIO Ondansetron HCl 4 mg 02/05/19 14:03 Zofran Injection IVPUSH Q6H PRN NAUSEA Oxycodone HCl 30 mg 02/05/19 21:45 Roxicodone - PO Q6H SILVIO Pantoprazole Sodium 40 mg 02/06/19 10:00 Protonix - PO DAILY SILVIO Pregabalin 100 mg 02/05/19 22:00 02/05/19 21:22 Lyrica - PO 100 mg BID SILVIO Administration Senna/Docusate Sodium 2 tablet 02/05/19 22:00 02/05/19 21:21 Pericolace - PO 2 tablet BID SILVIO Administration ASSESSMENT/PLAN: d/c oxycontin continue dilaudid as written change oxycodone 30mg QID PRN to q6h standing change gabapentin from PRN to standing on venti mask; determine baseline O2 requirements now +Hemovac I Stop The Drug Utilization Report below displays all of the controlled substance prescriptions, if any, that your patient has filled in the last twelve months. The information displayed on this report is compiled from pharmacy submissions to the Department, and accurately reflects the information as submitted by the pharmacies. This report was requested by: Salena Perez | Reference #: [id number] Others' Prescriptions Patient Name: Severo Banegas Date: 1960 Address: [address] [place] [address] Sex: Male Rx Written Rx Dispensed Drug Quantity Days Supply Prescriber Name 01/22/2019 01/24/2019 oxycodone hcl 30 mg tablet 120 30 ShekyleeBunny MS, MD 01/22/2019 01/24/2019 lyrica 100 mg capsule 90 30 SheinBunny MS, MD 01/22/2019 01/24/2019 diazepam 10 mg tablet 30 30 SheinBunny MS, MD 12/24/2018 12/26/2018 lyrica 100 mg capsule 90 30 SheinBunny MS, MD 12/24/2018 12/24/2018 oxycodone hcl 30 mg tablet 120 30 SheinBunny MS, MD 12/24/2018 12/24/2018 diazepam 10 mg tablet 30 30 SheinBunny MS, MD 11/26/2018 11/27/2018 lyrica 100 mg capsule 90 30 Chloe Henley (RPA-C) 11/21/2018 11/23/2018 oxycodone hcl 30 mg tablet 120 30 Chloe Henley (RPA-C) 11/21/2018 11/23/2018 diazepam 10 mg tablet 30 30 Chloe Henley (RPA-C) 10/24/2018 10/25/2018 pregabalin 100 mg capsule 90 30 SheBunny pichardo MS, MD 10/24/2018 10/25/2018 oxycodone hcl 30 mg tablet 120 30 SheBunny pichardo MS, MD 10/24/2018 10/25/2018 acetaminophen-cod #3 tablet 90 30 SheinBunny MS, MD 09/26/2018 09/26/2018 acetaminophen-cod #3 tablet 90 30 SheBunny pichardo MS, MD 09/26/2018 09/26/2018 pregabalin 100 mg capsule 90 30 SheBunny pichardo MS, MD 09/26/2018 09/26/2018 oxycodone hcl 30 mg tablet 120 30 SheBunny pichardo MS, MD 09/20/2018 09/20/2018 pregabalin 100 mg capsule 21 7 Bunny Sahni MS, MD 09/20/2018 09/20/2018 oxycodone hcl 30 mg tablet 28 7 Bunny Sahni MS, MD 09/20/2018 09/20/2018 acetaminophen-cod #3 tablet 21 7 Bunny Sahni MS, MD 08/23/2018 08/23/2018 lyrica 100 mg capsule 90 30 SheBunny pichardo MS, MD 08/23/2018 08/23/2018 oxycodone hcl 30 mg tablet 120 30 Shein, Bunny Cooper MD 08/23/2018 08/23/2018 acetaminophen-cod #3 tablet 90 30 Shein, Bunny Cooper MD 08/07/2018 08/12/2018 lyrica 150 mg capsule 21 7 Carmine Mcgarry MD 08/07/2018 08/12/2018 oxycodone hcl 15 mg tablet 24 4 Carmine Mcgarry MD 08/07/2018 08/12/2018 oxycontin er 30 mg tablet 14 7 Carmine Mcgarry MD 07/04/2018 07/17/2018 lyrica 100 mg capsule 90 30 Shein, Bunny Cooper MD 07/04/2018 07/04/2018 oxycodone hcl 30 mg tablet 120 30 Shein, Bunny Cooper MD 07/04/2018 07/04/2018 acetaminophen-cod #3 tablet 90 30 Shein, Bunny Cooper MD 06/27/2018 06/29/2018 oxycodone hcl 30 mg tablet 20 5 Chloe Henley (RPA-C) 05/30/2018 06/11/2018 lyrica 100 mg capsule 90 30 Shein, Bunny Cooper MD 05/30/2018 05/31/2018 zolpidem tartrate 10 mg tablet 30 30 Shein, Bunny Cooper MD 05/30/2018 05/31/2018 oxycodone hcl 30 mg tablet 120 30 Shein, Bunny Cooper MD 05/30/2018 05/31/2018 tramadol hcl 50 mg tablet 30 30 Shein, Bunny Cooper MD 05/30/2018 05/31/2018 diazepam 10 mg tablet 30 30 Shein, Bunny Cooper MD 04/30/2018 05/06/2018 lyrica 100 mg capsule 90 30 Chloe Henley (RPA-C) 04/30/2018 04/30/2018 zolpidem tartrate 10 mg tablet 30 30 Chloe Henley (RPA- C) 04/30/2018 04/30/2018 oxycodone hcl 30 mg tablet 120 30 Chloe Henley (RPA-C) 04/30/2018 04/30/2018 tramadol hcl 50 mg tablet 30 30 Chloe Henley (RPA-C) 04/30/2018 04/30/2018 diazepam 10 mg tablet 30 30 Chloe Henley (RPA-C) 04/01/2018 04/01/2018 zolpidem tartrate 10 mg tablet 30 30 Henley, Chloe (RPA- C) 04/01/2018 04/01/2018 lyrica 100 mg capsule 90 30 Henley, Chloe (RPA-C) 04/01/2018 04/01/2018 oxycodone hcl 30 mg tablet 120 30 Henley, Chloe (RPA-C) 04/01/2018 04/01/2018 diazepam 10 mg tablet 30 30 Henley, Chloe (RPA-C) 04/01/2018 04/01/2018 tramadol hcl 50 mg tablet 30 30 Henley, Chloe (RPA-C) 03/22/2018 03/22/2018 zolpidem tartrate 10 mg tablet 10 10 Shein, Bunny Cooper MD 03/22/2018 03/22/2018 lyrica 100 mg capsule 30 10 SheinBunny MS, MD 03/22/2018 03/22/2018 tramadol hcl 50 mg tablet 10 10 SheinBunny MS, MD 03/22/2018 03/22/2018 diazepam 10 mg tablet 10 10 SheinBunny MS, MD 03/22/2018 03/22/2018 oxycodone hcl 30 mg tablet 40 10 SheinBunny MS, MD 02/21/2018 02/21/2018 tramadol hcl 50 mg tablet 10 10 SheinBunny MS, MD 02/21/2018 02/21/2018 zolpidem tartrate 10 mg tablet 30 30 SheinBunny MS, MD 02/21/2018 02/21/2018 lyrica 100 mg capsule 90 30 SheinBunny MS, MD 02/21/2018 02/21/2018 oxycodone hcl 30 mg tablet 120 30 SheinBunny MS, MD 02/21/2018 02/21/2018 diazepam 10 mg tablet 30 30 SheBunny pichardo MS, MD 02/18/2018 02/18/2018 zolpidem tartrate 10 mg tablet 4 4 SheBunny pichardo MS, MD 02/18/2018 02/18/2018 oxycodone hcl 30 mg tablet 16 4 SheBunny pichardo MS, MD 02/18/2018 02/18/2018 acetaminophen-cod #3 tablet 8 4 SheBunny pichardo MS, MD 02/18/2018 02/18/2018 diazepam 10 mg tablet 4 4 SheBunny pichardo MS, MD 02/18/2018 02/18/2018 lyrica 100 mg capsule 12 4 Bunny Sahni MS, MD Patient Name: Severo Banegas Date: 1960 Address: [address] [place] [address] Sex: Male Rx Written Rx Dispensed Drug Quantity Days Supply Prescriber Name 08/09/2018 08/09/2018 oxycontin er 30 mg tablet 10 5 Guzi, Kellie 08/08/2018 08/08/2018 oxycodone hcl 15 mg tablet 20 3 Guzi, Kellie 08/04/2018 08/06/2018 oxycodone hcl 15 mg tablet 4 1 Carmine Mcgarry MD 08/06/2018 08/06/2018 lyrica 150 mg capsule 21 7 Carmine Mcgarry MD 08/04/2018 08/04/2018 lyrica 100 mg capsule 28 8 Carmine Mcgarry MD 08/04/2018 08/04/2018 oxycontin er 30 mg tablet 7 3 Carmine Mcgarry MD 08/04/2018 08/04/2018 oxycodone hcl 15 mg tablet 10 1 Carmine Mcgarry MD 07/24/2018 07/30/2018 oxycodone hcl 15 mg tablet 30 5 Carmine Mcgarry MD 07/29/2018 07/29/2018 oxycontin er 30 mg tablet 10 5 Carmine Mcgarry MD 07/24/2018 07/28/2018 oxycodone hcl 15 mg tablet 10 1 Carmine Mcgarry MD 07/24/2018 07/26/2018 oxycodone hcl 15 mg tablet 10 1 Carmine Mcgarry MD 07/25/2018 07/25/2018 oxycontin er 30 mg tablet 6 3 Paula, Kellie 07/24/2018 07/24/2018 diazepam 10 mg tablet 10 5 Carmine Mcgarry MD 07/24/2018 07/24/2018 lyrica 100 mg capsule 30 10 Carmine Mcgarry MD 07/24/2018 07/24/2018 oxycodone hcl 15 mg tablet 10 1 Carmine Mcgarry MD 07/24/2018 07/24/2018 oxycodone hcl er 10 mg tablet 10 5 Carmine Mcgarry MD 07/24/2018 07/24/2018 zolpidem tartrate 10 mg tablet 7 7 Carmine Mcgarry MD Dispo: We will continue to follow the patient. Thank you for this consultative opportunity."
[2019-02-05] MEDS: oxyCODONE HCL 5 MG TABLET PO SCH (22:04)
[2019-02-05] MEDS: GABAPENTIN 300 MG CAPSULE (FP) PO SCH (22:15)
[2019-02-06] MEDS: HYDROmorphone HCl 2 MG/ML VIAL IVPB PRN ×3 (02:00→13:13)
[2019-02-06] MEDS: CEFAZOLIN 2 GM/D5W 2 GM/50 ML ML IVPB SCH (02:13)
[2019-02-06] MEDS: oxyCODONE HCL 5 MG TABLET PO SCH ×4 (03:57→21:22)
[2019-02-06] MEDS: GABAPENTIN 300 MG CAPSULE (FP) PO SCH ×3 (06:08→21:21)
[2019-02-06 08:15] LABS: HEMATOCRIT 34.6 % (35.4-49); HEMOGLOBIN 11.9 GM/dl (11.7-16.9); MCH 29.1 pg (25.7-33.7); MCHC 34.3 g/dl (32.0-35.9); MEAN PLT VOLUME 8.9 fl (7.5-11.1); PLATELET COUNT 194 K/MM3 (134-434); RBC 4.07 M/mm3 (4.00-5.60); RDW 14.4 % (11.9-15.9); WHITE BLOOD COUNT 16.1 K/mm3 (4.0-10.8)
[2019-02-06 08:16] LABS: CALCIUM 8.3 mg/dl (8.5-10); CREATININE 1.2 mg/dl (0.55-1.3); MAGNESIUM 1.7 mg/dL (1.8-2.4); POTASSIUM 3.9 mmol/L (3.5-5.1)
[2019-02-06] MEDS ORDERED: MAGNESIUM OXIDE 400 MG TABLET (FP) PO ONE (09:15)
[2019-02-06] MEDS: PREGABALIN 50 MG CAPSULE PO SCH ×2 (09:41→21:21)
[2019-02-06] MEDS: SENNOSIDES/DOCUSATE COMBO (SENNA PLUS) TABLET (UD) PO SCH ×2 (09:41→21:21)
[2019-02-06] MEDS: ASPIRIN COATED 81 MG TABLET.EC PO SCH ×2 (09:41→21:21)
[2019-02-06] MEDS: LISINOPRIL 10 MG TABLET (FP) PO SCH (09:42)
[2019-02-06] MEDS: PANTOPRAZOLE 40 MG TABLET (FP) PO SCH (09:42)
[2019-02-06] MEDS: MULTIVITAMINS (DAILY MVI) TABLET (FP) PO SCH (09:42)
[2019-02-06] MEDS ORDERED: PATIENT'S OWN MEDICATION (NON-FORMULARY) (Metaxalone [Skelaxin] 800 MG) PO SCH ×2 (10:00→21:00)
[2019-02-06] MEDS ORDERED: PANTOPRAZOLE 40 MG TABLET (FP) PO SCH (10:00)
--- NOTE | 2019-02-06 10:29 | HP ---
CHIEF COMPLAINT: Right ankle pain HISTORY OF PRESENT ILLNESS: 58 year-old male with a PMH significant for HTN, carotid artery disease, CVA, GERD, h/o PE, Hep C, migraines, and DDD, and right ankle instability s/p right ankle Spear-Villatoro stabilization procedure on 02/[address] Bunny Sahni. PAST MEDICAL HISTORY: Hypertension Carotid artery disease CVA GERD h/o PE Hep C Migraines Degenerative disc disease PAST SURGICAL HISTORY: Appendectomy Back surgeries x 7 C-spine surgery Foot arthroscoy and reconstruction Hernia repair Social History: Smoking: quit 2000 Alcohol: 2 drinks per month; h/o heavy drinking x 15 years Drugs: no Allergies Penicillins Allergy (Verified 01/30/19 11:44) "HIVES" HOME MEDICATIONS: Home Medications Medication Instructions Recorded Gaby Tate B.lactis 1 each PO BID 02/23/17 [Probiotic] Lisinopril [Prinivil] 10 mg PO DAILY tablet 03/14/17 Pregabalin [Lyrica -] 100 mg PO BID #60 capsule MDD 2 03/14/17 Docusate Sodium [Colace -] 300 mg PO BID 01/30/19 Gabapentin [Neurontin -] 300 mg PO TID PRN 01/30/19 Metaxalone [Skelaxin] 800 mg PO DAILY 01/30/19 Pantoprazole Sodium 40 mg PO DAILY 01/30/19 oxyCODONE SR [Oxycontin] 30 mg PO QID MDD 2 01/30/19 Rivaroxaban [Xarelto -] 20 mg PO DAILY 02/05/19 REVIEW OF SYSTEMS CONSTITUTIONAL: Absent: fever, chills, diaphoresis, generalized weakness, malaise, loss of appetite, weight change HEENT: Absent: rhinorrhea, nasal congestion, throat pain, throat swelling, difficulty swallowing, mouth swelling, ear pain, eye pain, visual changes CARDIOVASCULAR: Absent: chest pain, syncope, palpitations, irregular heart rate, lightheadedness , peripheral edema RESPIRATORY: Absent: cough, shortness of breath, dyspnea with exertion, orthopnea, wheezing, stridor, hemoptysis GASTROINTESTINAL: Absent: abdominal pain, abdominal distension, nausea, vomiting, diarrhea, constipation, melena, hematochezia GENITOURINARY: Absent: dysuria, frequency, urgency, hesitancy, hematuria, flank pain, genital pain MUSCULOSKELETAL: Absent: myalgia, arthralgia, joint swelling, back pain, neck pain SKIN: Absent: rash, itching, pallor HEMATOLOGIC/IMMUNOLOGIC: Absent: easy bleeding, easy bruising, lymphadenopathy, frequent infections ENDOCRINE: Absent: unexplained weight gain, unexplained weight loss, heat intolerance, cold intolerance NEUROLOGIC: Absent: headache, focal weakness or paresthesias, dizziness, unsteady gait, seizure, mental status changes, bladder or bowel incontinence PSYCHIATRIC: Absent: anxiety, depression, suicidal or homicidal ideation, hallucinations. PHYSICAL EXAMINATION Vital Signs 02/06/19 02/06/19 05:58 09:00 Temperature 97.7 F Pulse Rate 76 Respiratory 20 20 Rate Blood Pressure 108/61 O2 Sat by Pulse 95 95 Oximetry (%) GENERAL: Awake, alert, and fully oriented, in no acute distress. LUNGS: Breath sounds equal, clear to auscultation bilaterally HEART: Regular rate and rhythm, normal S1 and S2 ABDOMEN: Soft, nontender, not distended UPPER EXTREMITIES: 2+ pulses, warm, well-perfused. No cyanosis. No clubbing. No peripheral edema. RLE: Surgical dressings c/d/i, hemovac drain sanguinous drainage NEUROLOGICAL: Cranial nerves II-XII intact. Normal speech. Laboratory Results - last 24 hr 02/06/19 02/06/19 07:20 07:20 WBC 16.1 H RBC 4.07 Hgb 11.9 Hct 34.6 L MCV 85.0 MCH 29.1 MCHC 34.3 RDW 14.4 Plt Count 194 MPV 8.9 Sodium 134 L Potassium 3.9 Chloride 102 Carbon Dioxide 24 Anion Gap 8 BUN 16.0 Creatinine 1.2 Est GFR (CKD-EPI)AfAm 76.79 Est GFR (CKD-EPI)NonAf 66.26 Random Glucose 149 H Calcium 8.3 L Magnesium 1.7 L Pre op BUN 13 Cr 1.1 Hgb 13.7 Intra op Vanc 1g; cefazolin 2g EBL N100mL LR 1400mL ASSESSMENT/PLAN: 58 year-old male with a PMH significant for HTN, CAD, CVA, GERD, h/o PE, Hep C, migraines, and DDD, and right ankle instability s/p right ankle Spear-Villatoro stabilization procedure on 02/[address] Bunny Sahni. Right ankle stabilization on 02/05 --POD #0 --perioperative antibiotics per surgery --reviewed home meds, see IStop below: d/c oxycontin; continue dilaudid as written; change oxycodone 30mg QID PRN to q6h standing; change gabapentin from PRN to standing -- on venti mask, switch to NC, titrate Sp02 >94% --Hemovac drain, monitor output Hypertension --BP stable --continue lisinopril Carotid artery disease CVA --not on ASA or statin at home h/o PE --continue to hold Xarelto FEN Fluids: PO intake adequate Electrolytes: replete as indicated Nutrition: regular diet DVT prophylaxis: OOB, ambulation, SCDs, TEDs, ASA 81mg BID Physical therapy Dispo: continues to require inpatient care. Full code. I Stop The Drug Utilization Report below displays all of the controlled substance prescriptions, if any, that your patient has filled in the last twelve months. The information displayed on this report is compiled from pharmacy submissions to the Department, and accurately reflects the information as submitted by the pharmacies. This report was requested by: Salena Perez | Reference #: [id number] Others' Prescriptions Patient Name: Severo Banegas Date: 1960 [address]: [address] [place] [address] Sex: Male Rx Written Rx Dispensed Drug Quantity Days Supply Prescriber Name 01/22/2019 01/24/2019 oxycodone hcl 30 mg tablet 120 30 Bunny Sahni MS, MD 01/22/2019 01/24/2019 lyrica 100 mg capsule 90 30 Bunny Sahni MS, MD 01/22/2019 01/24/2019 diazepam 10 mg tablet 30 30 Bunny Sahni MS, MD 12/24/2018 12/26/2018 lyrica 100 mg capsule 90 30 Bunny Sahni MS, MD 12/24/2018 12/24/2018 oxycodone hcl 30 mg tablet 120 30 Bunny Sahni MS, MD 12/24/2018 12/24/2018 diazepam 10 mg tablet 30 30 Bunny Sahni MS, MD 11/26/2018 11/27/2018 lyrica 100 mg capsule 90 30 Chloe Henley (RPA-C) 11/21/2018 11/23/2018 oxycodone hcl 30 mg tablet 120 30 Chloe Henley (RPA-C) 11/21/2018 11/23/2018 diazepam 10 mg tablet 30 30 Chloe Henley (RPA-C) 10/24/2018 10/25/2018 pregabalin 100 mg capsule 90 30 SheinBunny MS, MD 10/24/2018 10/25/2018 oxycodone hcl 30 mg tablet 120 30 SheinBunny MS, MD 10/24/2018 10/25/2018 acetaminophen-cod #3 tablet 90 30 SheinBunny MS, MD 09/26/2018 09/26/2018 acetaminophen-cod #3 tablet 90 30 SheinBunny MS, MD 09/26/2018 09/26/2018 pregabalin 100 mg capsule 90 30 SheinBunny MS, MD 09/26/2018 09/26/2018 oxycodone hcl 30 mg tablet 120 30 SheinBunny MS, MD 09/20/2018 09/20/2018 pregabalin 100 mg capsule 21 7 SheBunny pichardo MS, MD 09/20/2018 09/20/2018 oxycodone hcl 30 mg tablet 28 7 SheBunny pichardo MS, MD 09/20/2018 09/20/2018 acetaminophen-cod #3 tablet 21 7 Bunny Sahni MS, MD 08/23/2018 08/23/2018 lyrica 100 mg capsule 90 30 SheinBunny MS, MD 08/23/2018 08/23/2018 oxycodone hcl 30 mg tablet 120 30 SheinBunny MS, MD 08/23/2018 08/23/2018 acetaminophen-cod #3 tablet 90 30 SheBunny pichardo MS, MD 08/07/2018 08/12/2018 lyrica 150 mg capsule 21 7 Carmine Mcgarry MD 08/07/2018 08/12/2018 oxycodone hcl 15 mg tablet 24 4 Carmine Mcgarry MD 08/07/2018 08/12/2018 oxycontin er 30 mg tablet 14 7 Carmine Mcgarry MD 07/04/2018 07/17/2018 lyrica 100 mg capsule 90 30 SheBunny pichardo MS, MD 07/04/2018 07/04/2018 oxycodone hcl 30 mg tablet 120 30 SheBunny pichardo MS, MD 07/04/2018 07/04/2018 acetaminophen-cod #3 tablet 90 30 SheBunny pichardo MS, MD 06/27/2018 06/29/2018 oxycodone hcl 30 mg tablet 20 5 Henley, Chloe (RPA-C) 05/30/2018 06/11/2018 lyrica 100 mg capsule 90 30 SheBunny pichardo MS, MD 05/30/2018 05/31/2018 zolpidem tartrate 10 mg tablet 30 30 SheinBunny MS, MD 05/30/2018 05/31/2018 oxycodone hcl 30 mg tablet 120 30 SheinBunny MS, MD 05/30/2018 05/31/2018 tramadol hcl 50 mg tablet 30 30 SheinBunny MS, MD 05/30/2018 05/31/2018 diazepam 10 mg tablet 30 30 SheinBunny MS, MD 04/30/2018 05/06/2018 lyrica 100 mg capsule 90 30 Henley, Chloe (RPA-C) 04/30/2018 04/30/2018 zolpidem tartrate 10 mg tablet 30 30 Henley, Chloe (RPA- C) 04/30/2018 04/30/2018 oxycodone hcl 30 mg tablet 120 30 Henley, Chloe (RPA-C) 04/30/2018 04/30/2018 tramadol hcl 50 mg tablet 30 30 Henley, Chloe (RPA-C) 04/30/2018 04/30/2018 diazepam 10 mg tablet 30 30 Henley, Chloe (RPA-C) 04/01/2018 04/01/2018 zolpidem tartrate 10 mg tablet 30 30 Henley, Chloe (RPA- C) 04/01/2018 04/01/2018 lyrica 100 mg capsule 90 30 Henley, Chloe (RPA-C) 04/01/2018 04/01/2018 oxycodone hcl 30 mg tablet 120 30 Henley, Chloe (RPA-C) 04/01/2018 04/01/2018 diazepam 10 mg tablet 30 30 Henley, Chloe (RPA-C) 04/01/2018 04/01/2018 tramadol hcl 50 mg tablet 30 30 Henley, Chloe (RPA-C) 03/22/2018 03/22/2018 zolpidem tartrate 10 mg tablet 10 10 SheBunny pichardo MS, MD 03/22/2018 03/22/2018 lyrica 100 mg capsule 30 10 SheinBunny MS, MD 03/22/2018 03/22/2018 tramadol hcl 50 mg tablet 10 10 SheBunny pichardo MS, MD 03/22/2018 03/22/2018 diazepam 10 mg tablet 10 10 SheBunny pichardo MS, MD 03/22/2018 03/22/2018 oxycodone hcl 30 mg tablet 40 10 Bunny Sahni MS, MD 02/21/2018 02/21/2018 tramadol hcl 50 mg tablet 10 10 Bunny Sahni MS, MD 02/21/2018 02/21/2018 zolpidem tartrate 10 mg tablet 30 30 Bunny Sahni MS, MD 02/21/2018 02/21/2018 lyrica 100 mg capsule 90 30 Bunny Sahni MS, MD 02/21/2018 02/21/2018 oxycodone hcl 30 mg tablet 120 30 SheBunny pichardo MS, MD 02/21/2018 02/21/2018 diazepam 10 mg tablet 30 30 SheBunny pichardo MS, MD 02/18/2018 02/18/2018 zolpidem tartrate 10 mg tablet 4 4 Bunny Sahni MS, MD 02/18/2018 02/18/2018 oxycodone hcl 30 mg tablet 16 4 Bunny Sahni MS, MD 02/18/2018 02/18/2018 acetaminophen-cod #3 tablet 8 4 Bunny Sahni MS, MD 02/18/2018 02/18/2018 diazepam 10 mg tablet 4 4 Bunny Sahni MS, MD 02/18/2018 02/18/2018 lyrica 100 mg capsule 12 4 Bunny Sahni MS, MD Patient Name: Severo Banegas Date: 1960 Address: [address] [place] [address] Sex: Male Rx Written Rx Dispensed Drug Quantity Days Supply Prescriber Name 08/09/2018 08/09/2018 oxycontin er 30 mg tablet 10 5 Paula Kellie 08/08/2018 08/08/2018 oxycodone hcl 15 mg tablet 20 3 Guneelam Kellie 08/04/2018 08/06/2018 oxycodone hcl 15 mg tablet 4 1 Carmine Mcgarry MD 08/06/2018 08/06/2018 lyrica 150 mg capsule 21 7 Carmine Mcgarry MD 08/04/2018 08/04/2018 lyrica 100 mg capsule 28 8 Carmine Mcgarry MD 08/04/2018 08/04/2018 oxycontin er 30 mg tablet 7 3 Carmine Mcgarry MD 08/04/2018 08/04/2018 oxycodone hcl 15 mg tablet 10 1 Carmine Mcgarry MD 07/24/2018 07/30/2018 oxycodone hcl 15 mg tablet 30 5 Carmine Mcgarry MD 07/29/2018 07/29/2018 oxycontin er 30 mg tablet 10 5 Carmine Mcgarry MD 07/24/2018 07/28/2018 oxycodone hcl 15 mg tablet 10 1 Carmine Mcgarry MD 07/24/2018 07/26/2018 oxycodone hcl 15 mg tablet 10 1 Carmine Mcgarry MD 07/25/2018 07/25/2018 oxycontin er 30 mg tablet 6 3 Paula Kellie 07/24/2018 07/24/2018 diazepam 10 mg tablet 10 5 Carmine Mcgarry MD 07/24/2018 07/24/2018 lyrica 100 mg capsule 30 10 McgarryCarmine carroll MD 07/24/2018 07/24/2018 oxycodone hcl 15 mg tablet 10 1 Carmine Mcgarry MD 07/24/2018 07/24/2018 oxycodone hcl er 10 mg tablet 10 5 Carmine Mcgarry MD 07/24/2018 07/24/2018 zolpidem tartrate 10 mg tablet 7 7 Carmine Mcgarry MD Visit type - Emergency Visit Emergency Visit: No - New Patient This patient is new to me today: Yes Date on this admission: 02/08/19 - Critical Care Critical Care patient: No
--- NOTE | 2019-02-06 10:41 | PN ---
Progress Note (short form) - Note Progress Note: Pt is POD1 s/p right ankle gonsalves-england repair under block and GA. Pt states that he did not sleep well due to pain. He also has a h/o chronic back and ankle pain on large doses of PO opiods. Will add a dose of ofirmev and toradol for his current breakthrough pain, that he describes as a 7-8/10 (which was 10/ 10 prior to dilaudid dose)
[2019-02-06] MEDS ORDERED: KETOROLAC TROMETHAMINE 30 MG/1 ML VIAL IVPUSH ONE (10:45)
[2019-02-06] MEDS ORDERED: ACETAMINOPHEN 1000 MG/100 ML VIAL (NON FORMULARY) IVPB ONE (10:45)
--- NOTE | 2019-02-06 14:18 | PN ---
Progress Note (short form) - Note Progress Note: SURGERY 58yo M s/p Lt ankle Spear-Villatoro procedure, POD 1. Pt seen and examined at bedside, pt currently has posterior ankle splint on. Pt complaining of ankle pain, no controlled with his pain medications. Pt has history of chronic pain issues and narcotic use. Pt denies, fever, chills, n/v. Last Vital Signs Temp Pulse Resp BP Pulse Ox 98.0 F 60 20 109/60 95 02/06/19 14:11 02/06/19 14:11 02/06/19 14:11 02/06/19 14:11 02/06/19 09:00 CBC, BMP 02/06/19 07:20 02/06/19 07:20 PE: Gen: A&O x3 Resp: breathing comfortably LLE: shows posterior splint intact, no numbness in toes, moderate left ankle pain. Problem List - Problems (1) Left ankle instability Assessment/Plan: Plan -pt will plan to go home after he is seen by Dr. Sahni this afternoon. -pt Cam Boot is bedside and will be placed by Dr. Sahni as well as remove drain. -pt should follow up with Dr. Sahni in the office in 2 weeks for reevaluation. Case discussed with Dr. Sahni who agrees with plan Code(s): M25.372 - OTHER INSTABILITY, LEFT ANKLE
--- NOTE | 2019-02-06 14:40 | OP ---
DATE OF OPERATION: DATE OF DICTATION: 02/05/2019 SURGEON: Bunny Sahni MD ASSISTANTS: Maycol Sahni MD; YANCY Castillo PREOPERATIVE DIAGNOSIS: Instability of right ankle, following an anterior talofibular tear (sprain), and associated lateral ankle complex disassociation. POSTOPERATIVE DIAGNOSIS: Instability of right ankle, following an anterior talofibular tear (sprain), and associated lateral ankle complex disassociation. OPERATION PERFORMED: 1. Examination under anesthesia with fluoroscopy. (78757) 2. Spear-Villatoro augmented repair anterior talofibular ligament, right ankle. ( [id number]) ANESTHESIA: General. ANTIBIOTICS GIVEN: Ancef 2 g, vancomycin 1 g. OPERATION DETAILS: With the patient correctly identified, and brought into the operating room, the right lower extremity was compared to the left lower extremity at the level of the ankle with live fluoroscopic evaluation. Clearly, the opening of the lateral tibiotalar joint of the ankle on the right-hand side was clearly, visibly apparent, as compared to that on the left-hand side. With simple inversion, the lateral ankle complex opened significantly, that is the tibiotalar joint, bringing about a trapezoidal shape of the joint in this position. We elected, therefore , to go on to the Spear-Villatoro repair. Operation number 2. Under bloodless field, the right lower extremity was being prepped, draped in the routine manner with Betadine scrub solution, wiped off with alcohol, DuraPrep applied, a hockey-stick incision was made, skirting around the lateral malleolus and parallel alongside the posterior border of the fibula. Dissection was taken through the skin and subcutaneous tissue to expose the peroneal tendons. The peroneal tendons were clearly identified and revealed the presence of the anatomical cause. The peroneus brevis being attached to the tubercle of the 5th metatarsal was readily identified, compared to the peroneus longus which was attached to the bony structures of the undersurface of the foot at the cuneiform 1st metatarsal. The manipulation of the great toe, as well as the hindfoot, clearly brought about which was the appropriate tendon. The peroneus brevis was traced upwards to its muscle belly and muscle-tendon junction, as it expanded into its aponeurosis. The muscle was dissected off the aponeurosis using the stripping angle. The soft tissues were trimmed appropriately. A No. 2-0 nylon Elvira suture was placed into the proximal end of the cut tendon. At this point, the dissection was taken by lifting the fat of the anterolateral ankle complex and clearly visible the ATFL was deficient, as we went straight into the joint. All the tissues were disrupted at this level. A No. 1 Vicryl suture was applied to the tissues in the area, thus creating a Brostrom-type repair, but the mainstay was the Spear- Villatoro repair performed, as well as the distal tip of the fibula was exposed. A K- wire was drilled through this, passed upwards and posteriorly for about 1-1/2 inches to exit out posteriorly of the fibula. At that point, a 7.2-mm cannulated drill was passed over the K-wire and then with free hand this hole was opened slightly and washed out with saline. The Elvira suture using a Gregory needle was then managed to be passed through the hole made , that is from distal proximally, so that the peroneus brevis that remained attached to the 5th metatarsal tubercle now acted in line with the ATFL. The actual tendon was then reefed over itself. A basket suture into the tendon was performed by incising a defect in the tendon and then using a right angle vascular clamp this followed the blade out, catching the soft tissue and reefing it through it to bring about a complete reefing. At that point, the foot was held into as much eversion and dorsiflexion as possible and the tendon appropriately tied. This was No. 2-0 FiberWire. This gave us solid fixation, and the actual tendon reconstruction was excellent, tension was tight and strong, and held the foot in neutral instead of flopping into inversion. The wounds were thoroughly lavaged. The Brostrum sutures were all tied appropriately and the skin was closed with No. 2-0 nylon vertical mattress sutures in the midsection. At the apex of the hockey-stick incision, two vertical mattress sutures were utilized to capture the deep tissues appropriately. A 1/8-inch drain was brought out distally. After closure, a below-knee posterior splint applied, this for a CAM boot walker to be utilized. Patient will be non-weight bearing for 3 months. MD DANIA Garcai/[id number] MTDD
--- NOTE | 2019-02-06 16:46 | PN ---
Physical Exam: SUBJECTIVE: Patient seen and examined at bedside. Pain is well-managed on current regimen. OBJECTIVE: Vital Signs Period Temp Pulse Resp BP Sys/Winkler Pulse Ox Last 24 Hr 97.0 F-98.3 F 60-89 19-20 108-109/57-61 93-95 GENERAL: Awake, alert, and fully oriented, in no acute distress. LUNGS: Breath sounds equal, clear to auscultation bilaterally HEART: Regular rate and rhythm, normal S1 and S2 ABDOMEN: Soft, nontender, not distended UPPER EXTREMITIES: 2+ pulses, warm, well-perfused. No cyanosis. No clubbing. No peripheral edema. RLE: Surgical dressings c/d/i, hemovac drain sanguinous drainage NEUROLOGICAL: Cranial nerves II-XII intact. Normal speech. Laboratory Results - last 24 hr 02/06/19 02/06/19 07:20 07:20 WBC 16.1 H RBC 4.07 Hgb 11.9 Hct 34.6 L MCV 85.0 MCH 29.1 MCHC 34.3 RDW 14.4 Plt Count 194 MPV 8.9 Sodium 134 L Potassium 3.9 Chloride 102 Carbon Dioxide 24 Anion Gap 8 BUN 16.0 Creatinine 1.2 Est GFR (CKD-EPI)AfAm 76.79 Est GFR (CKD-EPI)NonAf 66.26 Random Glucose 149 H Calcium 8.3 L Magnesium 1.7 L Active Medications Generic Name Dose Route Start Last Admin Trade Name Freq PRN Reason Stop Dose Admin Al Hydroxide/Mg Hydroxide 30 ml 02/05/19 14:03 Mylanta Oral Suspension - PO Q4H PRN DYSPEPSIA Aspirin 81 mg 02/05/19 22:00 02/06/19 09:41 Ecotrin - PO 81 mg BID SILVIO Administration Gabapentin 300 mg 02/05/19 22:00 02/06/19 13:13 Neurontin - PO 300 mg TID SILVIO Administration Hydromorphone HCl 2 mg 02/05/19 19:50 02/06/19 13:13 Dilaudid Vial - IVPB 2 mg Q4H PRN Administration PAIN LEVEL 4 - 6 Lactated Ringer's 1,000 mls @ 125 mls/hr 02/05/19 13:30 Lactated Ringers Solution IV ASDIR SILVIO Lisinopril 10 mg 02/06/19 10:00 02/06/19 09:42 Prinivil PO 10 mg DAILY SILVIO Administration Multivitamins/Minerals/Vitamin C 1 tab 02/06/19 10:00 02/06/19 09:42 Tab-A-Vit - PO 1 tab DAILY SILVIO Administration Non-Formulary Medication 800 mg 02/06/19 10:00 Metaxalone [Skelaxin] PO DAILY SILVIO Ondansetron HCl 4 mg 02/05/19 14:03 Zofran Injection IVPUSH Q6H PRN NAUSEA Oxycodone HCl 30 mg 02/05/19 22:00 02/06/19 09:40 Roxicodone - PO 30 mg Q6H SILVIO Administration Pantoprazole Sodium 40 mg 02/06/19 10:00 02/06/19 09:42 Protonix - PO 40 mg DAILY SILVIO Administration Pregabalin 100 mg 02/05/19 22:00 02/06/19 09:41 Lyrica - PO 100 mg BID SILVIO Administration Senna/Docusate Sodium 2 tablet 02/05/19 22:00 02/06/19 09:41 Pericolace - PO 2 tablet BID SILVIO Administration ASSESSMENT/PLAN: 58 year-old male with a PMH significant for HTN, CAD, CVA, GERD, h/o PE, Hep C, migraines, and DDD, and right ankle instability s/p right ankle Spear-Villatoro stabilization procedure on 02/[address] Bunny Sahni. Right ankle stabilization on 02/05 --POD #1 --perioperative antibiotics complete --continue current pain regimen --titrate Sp02 >94% --Hemovac drain, monitor output Hypertension --BP stable --continue lisinopril Carotid artery disease CVA --not on ASA or statin at home h/o PE --continue to hold Xarelto, Hemovac drain still in place FEN Fluids: PO intake adequate Electrolytes: replete as indicated Nutrition: regular diet DVT prophylaxis: OOB, ambulation, SCDs, TEDs, ASA 81mg BID Physical therapy Dispo: continues to require inpatient care. Full code. Visit type - Emergency Visit Emergency Visit: No - New Patient This patient is new to me today: Yes Date on this admission: 02/08/19 - Critical Care Critical Care patient: No
[2019-02-06] MEDS: oxyCODONE HCL 10 MG SUSTAINED ACTING TABLET PO SCH (19:42)
[2019-02-07] MEDS: HYDROmorphone HCl 2 MG/ML VIAL IVPB PRN (00:24)
[2019-02-07] MEDS: oxyCODONE HCL 5 MG TABLET PO SCH ×2 (04:16→10:31)
[2019-02-07] MEDS: GABAPENTIN 300 MG CAPSULE (FP) PO SCH ×2 (06:04→13:41)
[2019-02-07 08:01] LABS: HEMATOCRIT 33.8 % (35.4-49); HEMOGLOBIN 11.4 GM/dl (11.7-16.9); MCHC 33.8 g/dl (32.0-35.9); MEAN CELL VOLUME 85.7 fl (80-96); PLATELET COUNT 166 K/MM3 (134-434); RBC 3.95 M/mm3 (4.00-5.60); RDW 14.5 % (11.9-15.9); WHITE BLOOD COUNT 12.8 K/mm3 (4.0-10.8)
--- NOTE | 2019-02-07 09:43 | PN ---
Progress Note (short form) - Note Progress Note: SURGERY 58yo M s/p Lt ankle Spear-Villatoro procedure, POD 2. Pt seen and examined at bedside, pt currently has posterior ankle splint on. Pt complaining of ankle pain and back pain not controlled with his pain medications. Pt has history of chronic pain issues and narcotic use. Pt denies, fever, chills, n/v. Pt was able to ambulate with PT yesterday. Last Vital Signs Temp Pulse Resp BP Pulse Ox 97.6 F 62 20 102/45 L 97 02/07/19 06:00 02/07/19 06:00 02/07/19 06:00 02/07/19 06:00 02/07/19 09:00 CBC, BMP 02/07/19 07:34 02/06/19 07:20 PE: Gen: A&O x3 Resp: breathing comfortably LLE: shows posterior splint intact, no numbness in toes, moderate left ankle pain. Problem List - Problems (1) Left ankle instability Assessment/Plan: Plan -pt is cleared for discharge home, pt should keep posterior splint on and will have Cam boot place by Dr. Sahni in the office. -pt should follow up with Dr. Sahni in the office next week, call for appt. -pt should take his pain medications Rx he alread has, no need for new script. -continue NWB on Rt foot, use crutches Pt discussed with Dr. Sahni who agrees with plan Code(s): M25.372 - OTHER INSTABILITY, LEFT ANKLE
--- NOTE | 2019-02-07 10:26 | PN ---
Progress Note (short form) - Note Progress Note: Patient seen and examined last night: 58M s/p RIGHT ankle Spear-Villatoro procedure POD #1. Pain well controlled. No acute events overnight. Pt. denies overnight history of headaches, chest pain, shortness of breath, nausea, vomiting, chills, & sweats. (+) Voiding; (+) Flatus; (-) BM. Ambulated in hallway today. All labs and vitals reviewed. PE: AAO x 3, NAD. R Ankle: Dressing, posterior splint C/D/I. Drain intact, in place; minimal serosanguinous drainage/shift; drain removed on rounds. B/L LE NV status at baseline. 58M s/p RIGHT ankle Spear-Villatoro procedure POD #1. -Pain control: per anaesthesia team. -DVT PPx: -Chemical: ASA 81mg PO BID x 6 weeks. -Mechanical: ARISTIDES's, SCD's. -Incentive spirometry q15 min. -PT/OT/Rehab, OOB. -Strict NWB RLE. -f/u AM labs. -Diet as tolerated. -Care per medical hospitalist team. -Discharge planning: f/u [facility] [place] Office Sunday02/14/2019; call for appointment . -Will follow. Maycol Sahni MD (Orthopaedic Surgery).
[2019-02-07] MEDS: LISINOPRIL 10 MG TABLET (FP) PO SCH (10:29)
[2019-02-07] MEDS: PREGABALIN 50 MG CAPSULE PO SCH (10:29)
[2019-02-07] MEDS: MULTIVITAMINS (DAILY MVI) TABLET (FP) PO SCH (10:30)
[2019-02-07] MEDS: ASPIRIN COATED 81 MG TABLET.EC PO SCH (10:31)
[2019-02-07] MEDS: SENNOSIDES/DOCUSATE COMBO (SENNA PLUS) TABLET (UD) PO SCH (10:32)
[2019-02-07] MEDS: PANTOPRAZOLE 40 MG TABLET (FP) PO SCH (10:32)
[2019-02-07] MEDS: oxyCODONE HCL 10 MG SUSTAINED ACTING TABLET PO SCH (10:33)
[2019-02-07 10:38] VITALS: BP 116/65; PULSE 80; TEMP 98.5
[2019-02-07] MEDS ORDERED: MAGNESIUM OXIDE 400 MG TABLET (FP) PO ONE (14:30)
--- NOTE | 2019-02-07 19:15 | DS ---
"Physical Exam: SUBJECTIVE: Patient seen and examined OBJECTIVE: Vital Signs Period Temp Pulse Resp BP Sys/Winkler Pulse Ox Last 24 Hr 97.6 F-98.7 F 62-80 19-22 102-116/45-68 96-97 PHYSICAL EXAM GENERAL: The patient is awake, alert, and fully oriented, in no acute distress. HEAD: Normal with no signs of trauma. EYES: PERRL, extraocular movements intact, sclera anicteric, conjunctiva clear. ENT: Ears normal, nares patent, oropharynx clear without exudates, moist mucous membranes. NECK: Trachea midline, full range of motion, supple. LUNGS: Breath sounds equal, clear to auscultation bilaterally, no wheezes, no crackles, no accessory muscle use. HEART: Regular rate and rhythm, S1, S2 without murmur, rub or gallop. ABDOMEN: Soft, nontender, nondistended, normoactive bowel sounds, no guarding, no rebound, no hepatosplenomegaly, no masses. EXTREMITIES: 2+ pulses, warm, well-perfused, no edema. NEUROLOGICAL: Cranial nerves II through XII grossly intact. Normal speech, gait not observed. PSYCH: Normal mood, normal affect. SKIN: Warm, dry, normal turgor, no rashes or lesions noted. LABS Laboratory Results - last 24 hr 02/07/19 07:34 WBC 12.8 H RBC 3.95 L Hgb 11.4 L Hct 33.8 L MCV 85.7 MCH 29.0 MCHC 33.8 RDW 14.5 Plt Count 166 MPV 9.0 HOSPITAL COURSE: Date of Admission:02/06/19 Date of Discharge: 02/07/19 Minutes to complete discharge: 35 Discharge Summary Problems reviewed: Yes Reason For Visit: SPRAIN OF OTHER LIGAMENT, RIGHT ANKLE Condition: Improved - Instructions Diet, Activity, Other Instructions: The patient was admitted to the Med-Surg Unit after an elective repair of Left ankle instability. Now, s/p Lt ankle Spear-Villatoro procedure. An xray was obtained in the OR and confirmed in good position with no fractures or dislocations. The day of surgery, the patient ambulated the hallways with assistance. Narcotic and non-narcotic pain management control was achieved with an oral and IV approach. POD #1, the surgical drain was removed fully intact and without incident. Sade-operative IV ABX were administered. DVT prophylaxis was achieved with SCDs , aspirin and early ambulation. The patient ambulated with Physical Therapy and home was recommended upon discharge. The discharge instructions and an oral pain management plan were reviewed with the patient. All questions answered. Above plan discussed with Dr. Sahni and agreed. ISTOP:This report was requested by: Harry Duran | Reference #: [id number] Rx Written Rx Dispensed Drug Quantity Days Supply Prescriber Name 01/22/2019 01/24/2019 oxycodone hcl 30 mg tablet 120 30 Bunny Sahni MS, MD 01/22/2019 01/24/2019 lyrica 100 mg capsule 90 30 Bunny Sahni MS, MD 01/22/2019 01/24/2019 diazepam 10 mg tablet 30 30 Bunny Sahni MS, MD 12/24/2018 12/26/2018 lyrica 100 mg capsule 90 30 SheBunny pichardo MS, MD 201812/24/2018 oxycodone hcl 30 mg tablet 120 30 Bunny Sahni MS, MD 12/24/2018 12/24/2018 diazepam 10 mg tablet 30 30 SheBunny pichardo MS, MD 11/2611/27/2018 lyrica 100 mg capsule 90 30 Henley, Chloe (RPA-C) 11/21/2018 11/23/2018 oxycodone hcl 30 mg tablet 120 30 Henley, Chloe (RPA-C ) 11/21/2018 11/23/2018 diazepam 10 mg tablet 30 30 Henley, Chloe (RPA-C) Disposition: HOME - Home Medications Comprehensive Discharge Medication List: Ambulatory Orders L.acidoph,Paracasei, B.lactis [Probiotic] 1 each PO BID 02/23/17 Lisinopril [Prinivil] 10 mg PO DAILY tablet 03/14/17 Pregabalin [Lyrica -] 100 mg PO BID #60 capsule MDD 2 03/14/17 Docusate Sodium [Colace -] 300 mg PO BID 01/30/19 Gabapentin [Neurontin -] 300 mg PO TID PRN 01/30/19 Metaxalone [Skelaxin] 800 mg PO DAILY 01/30/19 Pantoprazole Sodium 40 mg PO DAILY 01/30/19 oxyCODONE SR [Oxycontin] 30 mg PO QID MDD 2 01/30/19 Rivaroxaban [Xarelto -] 20 mg PO DAILY 02/05/19 This patient is new to me today: No Emergency Visit: Yes ED Registration Date: 02/06/19 Care time: The patient presented to the Emergency Department on the above date and was hospitalized for further evaluation of their emergent condition. Critical Care patient: No - Discharge Referral Referred to [facility] Med P.C.: No"
== END 2019-02-07 14:07 | disposition home or self-care (01) | DRG 502 ==
LOC: SUATTDRO 08:59 → FASU 08:59 → EDSTATUS 10:00 → FASU 16:20 → FM/S 16:20
PROVIDERS: ADMIT Orthopaedic Surgery Orthopaedic Surgery of the Spine; ATTEND Nurse Practitioner Acute Care
PROC: 0LSS0ZZ Reposition Right Ankle Tendon, Open Approach (ICD-10-PCS; 2019-02-05)
PROC: 0MQQ0ZZ Repair Right Ankle Bursa and Ligament, Open Approach (ICD-10-PCS; principal; 2019-02-05 13:07)
DX: M25.371 Other instability, right ankle (principal); I25.10 Atherosclerotic heart disease of native coronary artery without angina pectoris; I10 Essential (primary) hypertension; K21.9 Gastro-esophageal reflux disease without esophagitis
CPT/HCPCS: 36415; 73610-TC-RT-FY; 76000-TC-FY; 80048; 83735; 85027; 94760; 97116-GP; 97162-GP; J0131